=== PATIENT | male | born 1930 | race Caucasian/White ===

== ENCOUNTER 2018-01-26 11:07 | Inpatient (IN) ==
[2018-01-26 12:01] LABS: Basophils % 0.5 %; Eosinophils # 0.2 K/mcL (0.0-0.6); Eosinophils % 2.3 %; Hemoglobin 15.5 g/dL (12.9-16.9); Immature Granulocytes % 0.8 % (0-4); Immature Platelets 8.4 % (1.1-6.1); Lymphocytes # 1.7 K/mcL (0.6-4.6); Lymphocytes % 22.1 %; Mean Corpuscular Hemoglobin 33.2 pg (28.0-33.3); Mean Corpuscular Volume 92.1 fL (83.0-100.0); Mean Platelet Volume 11.9 fL (9.4-12.4); Monocytes # 0.6 K/mcL (0.0-1.3); Monocytes % 7.8 %; Neutrophils # 5.1 K/mcL (1.6-8.9); Red Blood Count 4.67 M/mcL (4.19-5.50); Red Cell Distribution Width 13.9 % (11.5-14.5); Segmented Neutrophils % 66.5 %
[2018-01-26 12:02] LABS: Platelet Count 45 K/mcL (140-400)
[2018-01-26 12:03] LABS: INR 1.3; Prothrombin Time 13.8 Seconds (9.4-12.1)
[2018-01-26 12:06] LABS: Activated Partial Thrombo Time 29.7 Seconds (26.0-36.0)
[2018-01-26 12:14] LABS: BUN/Creatinine Ratio 28 (6-26); Blood Urea Nitrogen 27 mg/dL (8-23); Calcium 9.4 mg/dL (8.6-10.3); Carbon Dioxide 22 mEq/L (23-29); Chloride 104 mEq/L (98-107); Glucose 235 mg/dL (70-105); Osmolality,Calculated 291 (280-300); Potassium 4.1 mEq/L (3.5-5.1); Sodium 134 mEq/L (136-145); eGFR For African Americans > 60 (> 60); eGFR For Non-African Americans > 60 (> 60)
[2018-01-26 12:19] LABS: Troponin I 0.82 ng/mL (< 0.04)
--- NOTE | 2018-01-26 12:25 | Emergency Department Note ---
Disposition Clinical Impression: NSTEMI (non-ST elevated myocardial infarction) Disposition: Admitted As Inpatient Condition: Good Time of Disposition: 12:54 Chest Pain HPI - General Chief Complaint: ED Chest Pain Stated Complaint: Chest Pressure Time Seen by Provider: 01/26/18 11:15 Source: EMS Limitations: no limitations Vital Signs Reviewed: Yes Nursing Notes Reviewed: Yes - History of Present Illness HPI Narrative: This is an 87 year-old male with history of HTN, IDDM, CAD/AK s/p CABG, and thrombocytopenia, who presents with substernal chest pressure, waxing and waning in intensity since yesterday evening. Associated with mild dyspnea. The pain is nonradiating, and is not clearly positional, pleuritic, or exertional. At the time of evaluation, pain is described as mild. Pt complaint: chest pain Onset (ago): day(s) (1) Duration: intermittent Onset: during rest Pain Location: substernal Severity: moderate Severity scale (1-10): 4 Quality: heaviness Pain Radiation: none Improves with: nothing Worsens with: nothing Associated symptoms: Reports: dyspnea (mild). Denies: nausea, vomiting, diaphoresis, syncope, palpitations, fever, cough, leg swelling Treatments prior to arrival chest pain: nitroglycerin (some relief) - Related Data Home Medications Medication Instructions Recorded Confirmed Cholecalciferol (Vitamin D3) 1,000 unit PO HS 12/05/15 01/26/18 [Vitamin D] Cyanocobalamin (Vitamin B-12) 1,000 mcg PO HS 12/05/15 01/26/18 [Vitamin B12] Levothyroxine [Synthroid] 112 mcg PO HS 12/05/15 01/26/18 Multivitamin [Multivitamins] 1 tab PO HS 12/05/15 01/26/18 Dapagliflozin Propanediol [Farxiga] 5 mg PO HS 01/11/17 01/26/18 GlipiZIDE [Glipizide ER] 10 mg PO BID 05/11/17 01/26/18 Oxybutynin Chloride [Ditropan Xl] 10 mg PO HS 05/11/17 01/26/18 Atorvastatin [Lipitor] 40 mg PO HS 10/31/17 01/26/18 Insulin DETEMIR [Levemir] 40 unit SQ HS 01/26/18 01/26/18 metFORMIN [Glucophage] 500 mg PO BIDWM 01/26/18 01/26/18 Previous Rx's Medication Instructions Recorded Polyethylene Glycol 3350 [MiraLAX] 17 gm PO QAM PRN #1 bottle 10/31/17 Allergies Allergy/AdvReac Type Severity Reaction Status Date / Time acetaminophen Allergy Difficulty Verified 01/26/18 14:11 [From Darvocet-N] Breathing propoxyphene Allergy Difficulty Verified 01/26/18 14:11 [From Darvocet-N] Breathing All systems ED: reviewed and negative except as stated. Constitutional: Denies: fever Respiratory: Reports: dyspnea. Denies: hemoptysis Gastrointestinal: Denies: abdominal pain, nausea, vomiting Chest Pain PMH - Past Medical History Medical history: Reports: aortic aneurysm, arthritis, cancer, coronary artery disease, diabetes, hyperlipidemia, myocardial infarction, thyroid disease, other Surgical history: Reports: cancer surgery, cholecystectomy, heart valve replacement, orthopedic, other, other Psychiatric history: Reports: no psych history - Social History Smoking Status: Former smoker Alcohol use: Reports: none Drug use: Reports: none Physical Exam - General Limitations: no limitations General appearance: alert, in no apparent distress - Head Head exam: atraumatic, normocephalic - Eye Eye exam: Present: normal appearance - ENT ENT exam: normal exam - Neck Neck exam: Present: normal inspection - Respiratory Respiratory exam: Present: normal lung sounds bilaterally. Absent: wheezes - Cardiovascular Cardiovascular exam: Present: regular rate, normal rhythm, normal heart sounds - Abdominal Exam Abdominal exam: Present: soft, Non-Tender. Absent: distention - Extremities Exam Extremities exam: Present: normal inspection. Absent: calf tenderness - Neurological Exam Neurological exam: Present: alert, oriented X3. Absent: motor sensory deficit - Psychiatric Psychiatric exam: Present: normal affect, normal mood - Skin Skin exam: Present: warm, dry, intact Course - Consultations Consultation #1: Discussed case with Dr. Hartmann. He says no ASA or heparin. Admit to hospitalist with hematology consult. Time: 12:29 Consultation #2: Patient has been accepted for admission by Dr. Dowd. Time: 13:13 Vital Signs Temperature 97.8 F 01/26/18 11:08 Pulse Rate 70 01/26/18 11:08 Respiratory Rate 18 01/26/18 11:08 Blood Pressure 137/93 01/26/18 11:08 O2 Sat by Pulse Oximetry 96 01/26/18 11:08 Temperature 97.5 F L 01/26/18 21:44 Pulse Rate 64 01/26/18 21:44 Respiratory Rate 14 01/26/18 21:44 Blood Pressure 134/73 01/26/18 21:44 O2 Sat by Pulse Oximetry 93 01/26/18 21:44 Oxygen Delivery Oxygen Delivery Room Air Chest Pain - Lab Data Result diagrams: 01/26/18 11:39 01/26/18 11:39 Lab Results 01/26/18 01/26/18 01/26/18 Range/Units 11:39 11:39 11:39 WBC 7.7 (4.3-11.1) K/mcL RBC 4.67 (4.19-5.50) M/mcL Hgb 15.5 (12.9-16.9) g/dL Hct 43.0 (37.5-50.1) % MCV 92.1 (83.0-100.0) fL MCH 33.2 (28.0-33.3) pg MCHC 36.0 H (31.6-35.5) g/dL RDW 13.9 (11.5-14.5) % Plt Count 45 L (140-400) K/mcL MPV 11.9 (9.4-12.4) fL Immature Gran % 0.8 (0-4) % Seg Neutrophils % 66.5 % Lymphocytes % 22.1 % Monocytes % 7.8 % Eosinophils % 2.3 % Basophils % 0.5 % Neutrophils # 5.1 (1.6-8.9) K/mcL Lymphocytes # 1.7 (0.6-4.6) K/mcL Monocytes # 0.6 (0.0-1.3) K/mcL Eosinophils # 0.2 (0.0-0.6) K/mcL Basophils # 0.0 (0.0-0.2) K/mcL Immature Plt Fraction 8.4 H (1.1-6.1) % PT 13.8 H (9.4-12.1) Seconds INR 1.3 APTT 29.7 (26.0-36.0) Seconds Sodium 134 L (136-145) mEq/L Potassium 4.1 (3.5-5.1) mEq/L Chloride 104 (98-107) mEq/L Carbon Dioxide 22 L (23-29) mEq/L BUN 27 H (8-23) mg/dL Creatinine 0.98 (0.70-1.30) mg/dL Est GFR ( Amer) > 60 (> 60) Est GFR (Non-Af Amer) > 60 (> 60) BUN/Creatinine Ratio 28 H (6-26) Glucose 235 H (70-105) mg/dL Calculated Osmolality 291 (280-300) Calcium 9.4 (8.6-10.3) mg/dL Troponin I 0.82 H* (< 0.04) ng/mL - EKG Data EKG attestation: Yes I reviewed and interpreted this EKG. EKG shows normal: sinus rhythm Rate: normal Rhythm: NSR [place]/QRS: left axis deviation Ectopy: PVC (occasional) When compared to previous EKG there are: no significant changes Interpretation: no acute changes, nonspecific ST-T wave changes
--- NOTE | 2018-01-26 13:39 | Electrocardiograph Report ---
[facility] [employer] Test Date: 2018-01-26 Pat Name: Anup Thomson Department: 103 Room: Gender: M Environmental Aide: CORTES : 1930 Requested By: Jorje Ortega Order Number: [id number] Reading MD: Deon Alicia MD Measurements Intervals [place] Rate: 77 P: 21 [place]: 188 QRS: -53 QRSD: 110 T: 90 QT: 394 QTc: 426 Interpretive Statements SINUS RHYTHM WITH OCCASIONAL VENTRICULAR PREMATURE COMPLEXES PATTERN CONSISTENT WITH PULMONARY DISEASE LEFT ANTERIOR FASCICULAR BLOCK [QRS AXIS <= -45, QR IN I, RS IN II] NONSPECIFIC ST & T-WAVE ABNORMALITY Electronically Signed On 01-26-2018 13:37:39 EDT by Deon Alicia MD
[2018-01-26] MEDS ORDERED: Naloxone 0.4 MG/ML INJ IVP PRN (14:06)
[2018-01-26] MEDS ORDERED: Aspirin 325 MG TABLET PO ONE (14:21)
[2018-01-26] MEDS ORDERED: *HR* Dextrose 50 % in Water (Syg) 50 ML SYRINGE IVP PRN (14:27)
[2018-01-26] MEDS ORDERED: Dextrose Gel 15 GM/37.5 ML TUBE PO PRN ×2 (14:27)
[2018-01-26] MEDS ORDERED: D5% in Water 1,000 ML IVC PRN (14:27)
[2018-01-26] MEDS ORDERED: Nitroglycerin 25 MG/250 ML INFUS..BTL IVC SCH (14:30)
--- NOTE | 2018-01-26 15:28 | Internal Med History&Physical ---
<Jimenez Victor - Last Filed: 01/27/18 00:20> Date of Encounter: 01/26/18 Time of Encounter: 13:30 Internal Medicine - H&P: HPI Chief complaint: CP Admitted From: Emergency Dept Plans for Post Hospital Care: Home History of present illness: Mr. Thomson is a 87 year old male w/PMH of aortic aneurysm, arthritis, basal cell skin carcinoma, CAD, diabetes controlled with oral and insulin, HLD, previous myocardial infarction in 2004 without stent placement, and thyroid disease presents from the ED with chief complaint of chest pain that began last night, then resolved, and returned this morning. Patient states he was working on his tractor when symptoms began. Denies previous occurrence. Describes pain as pressure in the center of his chest with radiation to his back one time. Status post CABG in 2004 with double bypass including maker. Reports nitroglycerin provided some relief in ED. Currently being followed by Dr. Hough for thrombocytopenia. Pt. states his spleen is destroying his platelets. Pt. reports weakness, urinary incontinence, and hx of falls but denies recent illness, fever, chills, nausea, vomiting, changes in vision, unusual bleeding, palpitations, shortness of breath, cough, chest congestion, abdominal pain, dizziness, lightheadedness, numbness, tingling, pre-syncope, or syncope. Past Med Surg Social Fam HX - Past Medical History Source: patient, old records reviewed, obtained from family Medical history: aortic aneurysm, arthritis, cancer (Skin), coronary artery disease, diabetes, hyperlipidemia, hypertension, myocardial infarction (2004 w/ o stent), thyroid disease, other Psychiatric history: no psych history - Past Surgical History Surgical History: cancer surgery (Skin), cholecystectomy, coronary bypass (CABG ) (Double (widowmaker)), heart valve replacement, orthopedic, other, other - Social History Smoking Status: Former smoker Packs per day: 1 PPD - Reports quitting 51 years ago Smokeless Tobacco Status: No Alcohol use: none Drug use: none Occupational status: retired Current living situation: Home, With Family Activity Level: Uses cane/walker Recent Out of Country Travel Within the Last 8 Weeks: No Exposure or Possible Exposure to Illness During Travel: No - Family History Father Race: Family Member Ethnicity: Non- Living Status: Age at : 61 Cause of : RI Hx Family Cardiac Disorders: Yes (RI, CAD) Hx Family Endocrine Disorder: Yes (DM) Mother Race: Family Member Ethnicity: Non- Living Status: Age at : 27 Cause of : TB Hx Family Respiratory Disorders: Yes (TB) Brother Race: Family Member Ethnicity: Non- Living Status: Age at : 64 Cause of : RI Hx Family Cardiac Disorders: Yes (RI) Sister History Unknown: Yes Race: Family Member Ethnicity: Non- Living Status: Age at : 67 Internal Medicine - H&P: Meds Cholecalciferol (Vitamin D3) [Vitamin D] 1,000 unit PO HS 12/05/15 [History] Cyanocobalamin (Vitamin B-12) [Vitamin B12] 1,000 mcg PO HS 12/05/15 [History] Levothyroxine [Synthroid] 112 mcg PO HS 12/05/15 [History] Multivitamin [Multivitamins] 1 tab PO HS 12/05/15 [History] Dapagliflozin Propanediol [Farxiga] 5 mg PO HS 01/11/17 [History] GlipiZIDE [Glipizide ER] 10 mg PO BID 05/11/17 [History] Oxybutynin Chloride [Ditropan Xl] 10 mg PO HS 05/11/17 [History] Atorvastatin [Lipitor] 40 mg PO HS 10/31/17 [History] Polyethylene Glycol 3350 [MiraLAX] 17 gm PO QAM PRN #1 bottle 10/31/17 [Rx] Insulin DETEMIR [Levemir] 40 unit SQ HS 01/26/18 [History] metFORMIN [Glucophage] 500 mg PO BIDWM 01/26/18 [History] 3 Allergy/AdvReac Type Severity Reaction Status Date / Time acetaminophen Allergy Difficulty Verified 01/26/18 14:11 [From Darvocet-N] Breathing propoxyphene Allergy Difficulty Verified 01/26/18 14:11 [From Darvocet-N] Breathing All Systems PM: A 10-system review of systems was performed and is negative for pertinent findings except as documented above in the HPI. - Constitutional Constitutional: as per HPI, falls, weakness, no chills, no fever(s), no night sweats - EENT Eyes: no change in vision, no discharge, no pain, no photophobia Ears: no ear discharge, no ear pain, no tinnitus Nose, mouth and throat: no dysphagia, no nasal discharge, no neck pain, no sore throat - Breasts Breasts: as per HPI - Cardiovascular Cardiovascular ROS IM: as per HPI, chest pain, no diaphoresis, no dyspnea, no lightheadedness, no palpitations, no syncope - Respiratory Respiratory: no cough, no dyspnea, no wheezing, no excessive phlegm production - Gastrointestinal Gastrointestinal: no abdominal pain, no diarrhea, no hematemesis, no hematochezia, no melena, no nausea, no vomiting - Genitourinary Genitourinary ROS male: as per HPI, urinary incontinence - Musculoskeletal Musculoskeletal ROS IM: no numbness, no tingling - Integumentary Integumentary IM: as per HPI, other (Skin cancer on arms and left ear) - Neurological Neurological ROS: as per HPI, weakness, no confusion, no convulsions, no focal weakness, no numbness, no tingling, no tremor(s) - Psychiatric Psychiatric: as per HPI - Endocrine Endocrine IM: as per HPI - Hematologic/Lymphatic Hematologic/Lymphatic: no easy bruising - Allergic/Immunologic Allergic/Immunologic: as per HPI - Constitutional Vitals: Temp Pulse Resp BP Pulse Ox 97.6 F 71 16 131/83 93 01/26/18 14:28 01/26/18 14:28 01/26/18 14:28 01/26/18 14:28 01/26/18 14:28 General appearance: Present: cooperative, A&O X 3, pleasant, no acute distress, answers questions appropriately - Head Head exam: Present: atraumatic, normocephalic - Eye Eye exam: Present: PERRL, conjuntiva pink, sclera anicteric Pupils: Present: PERRL - ENT ENT exam: Present: normal exam - Neck Neck exam general surgery: Present: normal inspection, supple, trachea midline. Absent: lymphadenopathy - Respiratory Respiratory exam: Present: CTAB. Absent: accessory muscle use, rales, rhonchi, wheezes - Cardiovascular Cardiovascular exam: Present: RRR, +S1, +S2. Absent: diastolic murmur, gallop, rubs, systolic murmur - GI/Abdominal GI/Abdominal exam: Present: normal bowel sounds, soft, no peritoneal signs. Absent: distended, tenderness - Rectal Rectal exam: Present: deferred - Additional comments: exam deferred. - Extremities Exam Extremities exam: Present: warm, radial pulses palpable and symmetrical. Absent : calf tenderness, cyanotic, pedal edema - Back Exam Back exam: Present: normal inspection - Neurological Exam Neurological exam: Present: CN II-XII intact, oriented X3, no focal deficits. Absent: pronater drift, facial droop, speech deficit - Psychiatric Psychiatric exam: Present: normal affect, normal mood - Skin Skin exam: Present: dry, erythema Internal Med - H&P Results - Labs CBC & Chem 7: 01/26/18 11:39 01/26/18 11:39 - EKG Data EKG shows normal: sinus rhythm - EKG Data Prior EKG available for review: yes EKG comments: 01/26/18 15:39 EKG dated 05/11/17 shows sinus rhythm with marked left axis deviation. EKG dated 01/26/18 shows sinus rhythm with occasional ventricular premature complexes, pattern consistent with pulmonary disease. Left anterior fascicular block and nonspecific ST and T-wave abnormality. - Diagnostic Studies Chest x-ray Additional comments: Impressions Chest X-Ray 01/26/18 11:17 IMPRESSION: Minimal left basilar atelectasis. Otherwise no acute cardiopulmonary findings. D/ / 01/26/2018 12:31:04 Shayla Avina MD / [facility] Interpreting Provider: Shayla Avina MD - Assessment and plan (1) NSTEMI (non-ST elevated myocardial infarction) Current Visit: Yes Status: Acute Assessment and plan: Acute CP that began last night and returned this morning. Centralized pressure with radiation to back one time. Patient states he was working on his tractor at the time. Denies SOB, N, V. On exam, pt. states CP has resolved for now. Initial troponin 0.82. Will trend x2. Pt. currently has thrombocytopenia w/ platelets of 45, so no heparin. Aspirin per Cardiology. Continuous cardiac telemetry. Echocardiogram. Nitro drip per Cardiology. Platelet transfusion per Dr. Hough to increase platelets >50 for LHC and heparin use. Cardiology consult ordered and discussed w/Dr. Hartmann in ED and I appreciate the consult. Supplemental O2 w/titration and SpO2 monitoring PRN. Pt. discussed w/Dr. Pierce who agrees w/plan of care. Pt. is high risk for current cardiac event and further morbidity d/t current CP and sx, hx of previous RI/CABG, current thrombocytopenia, hx, and risk factors. Observation. (2) Thrombocytopenia Current Visit: Yes Status: Acute Assessment and plan: Acute on chronic thrombocytopenia w/platelets of 45. Pt. reports he is followed by Dr. Hough who is aware of current thrombocytopenia and watching patient's numbers. Hematology oncology consult ordered and discussed with Jie Muñoz regarding current thrombocytopenia and I appreciate the consult. Current recommendation is to transfuse platelets in order to bring platelet level greater than 50 for LHC/heparin use. (3) Skin cancer Current Visit: Yes Status: Chronic Assessment and plan: Hx of chronic basal cell skin carcinoma. Pt. reports still receiving treatments and sees Dr. oHugh. Reports next appt. is in February. Dr. Hough consulted d/ t current thrombocytopenia and I appreciate the consult. (4) Type 2 diabetes mellitus Current Visit: Yes Status: Chronic Assessment and plan: Hx of DM controlled with insulin and oral anti-hyperglycemics. Continue patient 's insulin, hold oral medications, and administer low-dose correction insulin sliding scale with hypoglycemic protocol. A1c in a.m. labs. BG checks before meals at bedtime. Qualifiers: Diabetes mellitus group home insulin use: with group home use Diabetes mellitus complication status: with hyperglycemia Qualified Code(s): E11.65 - Type 2 diabetes mellitus with hyperglycemia; Z79.4 - network systems consultant (current) use of insulin; Z79.4 - network systems consultant (current) use of insulin; Z79.4 - network systems consultant (current ) use of insulin; Z79.4 - longterm (current) use of insulin (5) HLD (hyperlipidemia) Current Visit: Yes Status: Chronic Assessment and plan: Hx of chronic HLD. Lipid panel in a.m. labs. Continue pts. Lipitor. Qualifiers: Hyperlipidemia type: pure hypercholesterolemia Qualified Code(s): E78.00 - Pure hypercholesterolemia, unspecified; E78.0 - Pure hypercholesterolemia (6) Thyroid disease Current Visit: Yes Status: Chronic Assessment and plan: Hx of chronic thyroid disease. TSH and Free T4 in a.m. labs. Continue pts. Synthroid. (7) Hx of fall Current Visit: Yes Status: Chronic Assessment and plan: Hx of chronic falls d/t weakness. Falls/safety precautions, up with assist, and bed rest w/bedside commode w/assist only. PT/OT consults ordered to assess for rehabilitation needs for post-discharge planning. (8) Previous inferior myocardial infarction older than 8 weeks Current Visit: Yes Status: Resolved Assessment and plan: Hx of previous RI in 2004 with no stents but CABG with double bypass in maker. Cardiology consulted for current CP. (9) DVT prophylaxis Current Visit: Yes Status: Acute Assessment and plan: Bilateral SCDs on LEs for DVT prophylaxis d/t current platelets of 45. (10) Aortic aneurysm, abdominal Current Visit: Yes Status: Chronic Assessment and plan: Hx of AAA. Stable currently. Qualifiers: Presence of rupture: without rupture Qualified Code(s): I71.4 - Abdominal aortic aneurysm, without rupture - Time Spent With Patient Total time spent is greater than 50% in coordination of care (as documented) at patient's floor/unit and/or counseling patient: Greater than 35 minutes <Lee Pierce - Last Filed: 01/27/18 00:26> Date of Encounter: 01/27/18 Internal Medicine - H&P: HPI History of present illness: Mr. Thomson is a 87 year old male All Systems PM: A 10-system review of systems was performed and is negative for pertinent findings except as documented above in the HPI. - Constitutional Vitals: Temp Pulse Resp BP Pulse Ox 97.5 F L 64 14 134/73 93 01/26/18 21:44 01/26/18 21:44 01/26/18 21:44 01/26/18 21:44 01/26/18 21:44 Internal Med - H&P Results - Labs CBC & Chem 7: 01/26/18 11:39 01/26/18 11:39 Labs: Cardiac Enzymes 01/26/18 01/26/18 Range/Units 17:35 22:57 Troponin I 0.72 H* 1.14 H* (< 0.04) ng/mL - Attending Attestation I have seen and examined this patient independently. I have discussed with RESPIRATORY MEDICINE PHYSICIAN Mr Victor regarding the management plan. Agree with the documentation. - Assessment and plan (1) Thrombocytopenia Current Visit: Yes Status: Acute (2) Type 2 diabetes mellitus Current Visit: Yes Status: Chronic Qualifiers: Diabetes mellitus adjuster leader insulin use: with group home use Diabetes mellitus complication status: with hyperglycemia Qualified Code(s): E11.65 - Type 2 diabetes mellitus with hyperglycemia; Z79.4 - longterm (current) use of insulin; Z79.4 - network systems consultant (current) use of insulin; Z79.4 - longterm (current ) use of insulin; Z79.4 - network systems consultant (current) use of insulin (3) Skin cancer Current Visit: Yes Status: Chronic (4) NSTEMI (non-ST elevated myocardial infarction) Current Visit: Yes Status: Acute (5) HLD (hyperlipidemia) Current Visit: Yes Status: Chronic Qualifiers: Hyperlipidemia type: pure hypercholesterolemia Qualified Code(s): E78.00 - Pure hypercholesterolemia, unspecified; E78.0 - Pure hypercholesterolemia (6) Thyroid disease Current Visit: Yes Status: Chronic (7) Previous inferior myocardial infarction older than 8 weeks Current Visit: Yes Status: Resolved (8) DVT prophylaxis Current Visit: Yes Status: Acute (9) Hx of fall Current Visit: Yes Status: Chronic (10) Aortic aneurysm, abdominal Current Visit: Yes Status: Chronic Qualifiers: Presence of rupture: without rupture Qualified Code(s): I71.4 - Abdominal aortic aneurysm, without rupture - Time Spent With Patient Total time spent is greater than 50% in coordination of care (as documented) at patient's floor/unit and/or counseling patient:
--- NOTE | 2018-01-26 15:54 | Cardiology Consult Note ---
Date of Encounter: 01/26/18 Time of Encounter: 15:45 Assessment and Plan (1) NSTEMI (non-ST elevated myocardial infarction) Current Visit: Yes Status: Acute A/R/B of C discussed with him. Cw his history of thrombocytopenia and aneurysm. He is agreeable with proceeding but recommended that plt count >50 per hematology for DAPT/heparin. (2) Thrombocytopenia Current Visit: No Status: Acute Platelet transfusion, dw and consult hematology. Discussion w patient/family: The assessment and plan as outlined above was discussed with the patient and/or family members who expressed understanding and agreement. All questions were answered. Thank you for involving us in the care of your patient. Please call with any questions. History of Present Illness Consult date: 01/26/18 Consult reason: NSTEMI Chief complaint: chest pain History of present illness: Mr. Thomson is a 87 year old male with 2 vsl CABG 2004, chronic thrombocytopenia plt 40s, BL LE aneurysms presents with waxing and waning chest discomfort starting yesterday afternoon at worst 8/10 now 2/10 described as pressure. It is not associated with dyspnea, nausea or diaphoresis. History of chronic thrombocytopenia followed by hematology with plt counts in the 40s and instructed not to be on aspirin previously. Discussed with Hematology (Toni Hough), that was acceptable for aspirin but also needs platelet transfused to get plt count above 50 before invasive procedure. Heparin also acceptable if necessary. Past Med Surg Social Fam HX - Past Medical History Medical history: aortic aneurysm, arthritis, cancer (Skin), coronary artery disease, diabetes, hyperlipidemia, hypertension, myocardial infarction (2004 w/ o stent), thyroid disease, other Psychiatric history: no psych history - Past Surgical History Surgical History: cancer surgery (Skin), cholecystectomy, coronary bypass (CABG ) (Double (widowmaker)), heart valve replacement, orthopedic, other, other - Social History Smoking Status: Former smoker Packs per day: 1 PPD - Reports quitting 51 years ago Smokeless Tobacco Status: No Alcohol use: none Drug use: none - Family History Father Race: Family Member Ethnicity: Non- Living Status: Age at : 61 Cause of : [place] Hx Family Cardiac Disorders: Yes ([place], CAD) Hx Family Endocrine Disorder: Yes (DM) Mother Race: Family Member Ethnicity: Non- Living Status: Age at : 27 Cause of : [place] Hx Family Respiratory Disorders: Yes (TB) Brother Race: Family Member Ethnicity: Non- Living Status: Age at : 64 Cause of : [place] Hx Family Cardiac Disorders: Yes ([place]) Sister History Unknown: Yes Race: Family Member Ethnicity: Non- Living Status: Age at : 67 Medications and Allergies Cholecalciferol (Vitamin D3) [Vitamin D] 1,000 unit PO HS 12/05/15 [History] Cyanocobalamin (Vitamin B-12) [Vitamin B12] 1,000 mcg PO HS 12/05/15 [History] Levothyroxine [Synthroid] 112 mcg PO HS 12/05/15 [History] Multivitamin [Multivitamins] 1 tab PO HS 12/05/15 [History] Dapagliflozin Propanediol [Farxiga] 5 mg PO HS 01/11/17 [History] GlipiZIDE [Glipizide ER] 10 mg PO BID 05/11/17 [History] Oxybutynin Chloride [Ditropan Xl] 10 mg PO HS 05/11/17 [History] Atorvastatin [Lipitor] 40 mg PO HS 10/31/17 [History] Polyethylene Glycol 3350 [MiraLAX] 17 gm PO QAM PRN #1 bottle 10/31/17 [Rx] Insulin DETEMIR [Levemir] 40 unit SQ HS 01/26/18 [History] metFORMIN [Glucophage] 500 mg PO BIDWM 01/26/18 [History] 3 Allergy/AdvReac Type Severity Reaction Status Date / Time acetaminophen Allergy Difficulty Verified 01/26/18 14:11 [From Darvocet-N] Breathing propoxyphene Allergy Difficulty Verified 01/26/18 14:11 [From Darvocet-N] Breathing All Systems Review: The remainder of the systems were reviewed and are negative - Constitutional Constitutional: no chills, no fever(s) - EENT Eyes: no blurred vision, no loss of vision Nose, mouth and throat: no dysphagia, no epistaxis - Cardiovascular Cardiovascular: chest pain at rest, chest pain with exertion - Respiratory Respiratory: no hemoptysis, no wheezing - Gastrointestinal Gastrointestinal: no hematemesis, no hematochezia - Genitourinary Genitourinary: no hematuria, no nocturia - Musculoskeletal Musculoskeletal: no arthralgias, no myalgias - Integumentary Integumentary: no rash, no unusual bruising - Neurological Neurological: no syncope, no tingling - Psychiatric Psychiatric: no hallucinations, no panic attacks - Hematological/Lymphatic Hematologic/Lymphatic: no easy bleeding, no easy bruising Physical Examination Vital Signs, Last 4 Hours Temp Pulse Resp BP Pulse Ox 01/26/18 14:28 97.6 F 71 16 131/83 93 General: Conversant HEENT: Atraumatic Neck: No JVD Cardiac: Reg Rate and Rhythm Lungs: Other (basilar crackles) Neuro: Alert and responsive Abdomen: Soft Skin: No rashes noted on visualized skin Musculoskeletal: No Chest Wall Tenderness Extremities: No Edema Results 01/26/18 11:39 01/26/18 11:39 - EKG Interpretation EKG results cardiology: personally reviewed, sinus rhythm, no diagnostic ischemia Consult Discharge Plan - Plan Referrals: Bruce Shannon MD [Primary Care Provider] -
--- NOTE | 2018-01-26 17:06 | Oncology Inp Consult Note ---
<Jie Muñoz - Last Filed: 01/26/18 17:01> Date of Encounter: 01/26/18 Time of Encounter: 16:00 Assessment and Plan (1) Thrombocytopenia Status: Acute Assessment and plan: Chronic and stable, secondary to underlying cirrhosis with splenomegaly. Platelets count 45 on admission. Patient admitted with NSTEMI, cardiology consult reviewed, he is planned for [facility]. Hematology consulted for further recommendations in light of his thrombocytopenia. 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 Dr. Hough recommended platelet transfusion prior to elective surgical procedures to maintain PLT count > 50,000. Ideally, would recommend his platelet count chronically stay >50,000 with any DAP therapy, ASA or Heparin. Discussed recommendations with Dr. Hartmann with Cardiology. Dr. Hartmann has already arranged for platelet transfusion. Patient updated on recommendations at bedside today. Currently experiencing chest pain, primary team aware and working with patient, preparing for EKG at this time of assessment. Please refer to Dr. Hough's attestation for additional details. - Data of Consult Patient: known to practice within the last 3 years Consult date: 01/26/18 Requesting Physician: Jeramie Dowd Primary Care Provider: Bruce Shannon MD - Consult Narrative Reason for consult: Chronic thrombocytopenia, splenomegaly, cirrhosis History of present illness: Mr. 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 Rodriguez, BPH, constipation and hypothyroidism. Patient of Dr. Hough who monitors patients thrombocytopenia. Dr. Hough does note he may consider thrombopoietin analogs like Nplate or promacta if platelets fall below 40, or he develops signs or symptoms of bleeding, however, he has been stable and had no indication for further treatment. 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 CT abd/pel without contrast on 12/19/15 shows mild splenomegaly appears stable. Also evidence of cirrhosis Past Med Surg Social Fam HX - Past Medical History Medical history: aortic aneurysm, arthritis, cancer (Skin), coronary artery disease, diabetes, hyperlipidemia, hypertension, myocardial infarction (2004 w/ o stent), thyroid disease, other Psychiatric history: no psych history - Past Surgical History Surgical History: cancer surgery (Skin), cholecystectomy, coronary bypass (CABG ) (Double (widowmaker)), heart valve replacement, orthopedic, other, other - Social History Smoking Status: Former smoker Packs per day: 1 PPD - Reports quitting 51 years ago Smokeless Tobacco Status: No Alcohol use: none Drug use: none - Family History Father Race: Family Member Ethnicity: Non- Living Status: Age at : 61 Cause of : [place] Hx Family Cardiac Disorders: Yes ([place], CAD) Hx Family Endocrine Disorder: Yes (DM) Mother Race: Family Member Ethnicity: Non- Living Status: Age at : 27 Cause of : TB Hx Family Respiratory Disorders: Yes (TB) Brother Race: Family Member Ethnicity: Non- Living Status: Age at : 64 Cause of : [place] Hx Family Cardiac Disorders: Yes ([place]) Sister History Unknown: Yes Race: Family Member Ethnicity: Non- Living Status: Age at : 67 Medications and Allergies Cholecalciferol (Vitamin D3) [Vitamin D] 1,000 unit PO HS 12/05/15 [History] Cyanocobalamin (Vitamin B-12) [Vitamin B12] 1,000 mcg PO HS 12/05/15 [History] Levothyroxine [Synthroid] 112 mcg PO HS 12/05/15 [History] Multivitamin [Multivitamins] 1 tab PO HS 12/05/15 [History] Dapagliflozin Propanediol [Farxiga] 5 mg PO HS 01/11/17 [History] GlipiZIDE [Glipizide ER] 10 mg PO BID 05/11/17 [History] Oxybutynin Chloride [Ditropan Xl] 10 mg PO HS 05/11/17 [History] Atorvastatin [Lipitor] 40 mg PO HS 10/31/17 [History] Polyethylene Glycol 3350 [MiraLAX] 17 gm PO QAM PRN #1 bottle 10/31/17 [Rx] Insulin DETEMIR [Levemir] 40 unit SQ HS 01/26/18 [History] metFORMIN [Glucophage] 500 mg PO BIDWM 01/26/18 [History] 3 Allergy/AdvReac Type Severity Reaction Status Date / Time acetaminophen Allergy Difficulty Verified 01/26/18 14:11 [From Darvocet-N] Breathing propoxyphene Allergy Difficulty Verified 01/26/18 14:11 [From Darvocet-N] Breathing Constitutional: Present: fatigue. Absent: anorexia, chills, fever(s), weakness , weight loss Eyes: Absent: change in vision Nose, mouth and throat: Absent: dysphagia Cardiovascular: Present: as per HPI, chest pain Respiratory: Present: dyspnea. Absent: cough, hemoptysis Gastrointestinal: Absent: abdominal pain, heartburn, hematemesis, hematochezia, melena, nausea, vomiting Additional comments: denies dysuria or hematuria Musculoskeletal: Absent: numbness, tingling Integumentary: Absent: wounds Neurological: Absent: focal weakness, frequent falls Hematologic/Lymphatic: Present: as per HPI Oncology - Exam - Constitutional Vitals: Temp Pulse Resp BP Pulse Ox 97.6 F 84 15 156/84 84 01/26/18 14:28 01/26/18 16:47 01/26/18 16:47 01/26/18 16:47 01/26/18 16:47 General appearance: cooperative, no acute distress, no febrile Exam: appears uncomfortable, reports chest pain, primary team aware and notifying hospitalist and preparing for EKG at moment - Head Head exam: Present: atraumatic - ENT ENT exam: Present: mucous membranes moist - Respiratory Respiratory exam: Present: CTAB. Absent: respiratory distress - Cardiovascular Cardiovascular exam: Present: RRR, +S1, +S2 - GI/Abdominal GI/Abdominal exam: Present: normal bowel sounds, soft. Absent: tenderness - Extremities Exam Extremities exam: Present: normal inspection. Absent: calf tenderness - Neurological Exam Neurological exam: Present: alert, oriented X3, no focal deficits, strengths equal and symetr throughout - Psychiatric Psychiatric exam: Present: normal affect, normal mood - Skin Skin exam: Present: dry, intact, normal color, warm Consult Discharge Plan - Plan Referrals: Bruce Shannon MD [Primary Care Provider] - <Kory Hough - Last Filed: 01/26/18 19:19> Date of Encounter: 01/26/18 - Data of Consult Requesting Physician: Jeramie Dowd Primary Care Provider: Bruce Shannon MD - Consult Narrative History of present illness: Mr. Thomson is a 87 year old male Oncology - Exam - Constitutional Vitals: Temp Pulse Resp BP Pulse Ox 97.9 F 70 15 132/65 95 01/26/18 18:57 01/26/18 18:57 01/26/18 18:57 01/26/18 18:57 01/26/18 18:57 Oncology - Results Labs: Cardiac Enzymes 01/26/18 Range/Units 17:35 Troponin I 0.72 H* (< 0.04) ng/mL - Attending Attestation 1. Acute non-STMI. Troponin peak 0.8 and is coming down most recent value 0.72. He is chest pain-free at the moment on nitroglycerin drip Agree with left heart catheterization. He is at high risk for coronary artery disease given his diabetes which is not well-controlled 2. Chronic thrombocytopenia from cirrhosis. Cirrhosis in turn is secondary to Rose from long-standing diabetes Current platelet count 45,000. We will transfuse 1 unit single donor apheresis platelets prior to left heart catheterization. This should improve the platelet count about 80,000 or above If he is a candidate for dual antiplatelet agents , then keep his platelets above 50,000. We will watch him closely as an outpatient and may consider thrombopoietin analogs to improve platelet count
[2018-01-26] MEDS: Insulin LISPRO 300 UNITS/3 ML VIAL SQ SCH ×2 (18:00→20:41)
[2018-01-26] MEDS ORDERED: 0.9 % Sodium Chloride 250 ML ONE (18:46)
[2018-01-26] MEDS: Cyanocobalamin (B-12) 1,000 MCG TABLET PO SCH (20:41)
[2018-01-26] MEDS: Cholecalciferol (D-3) 1,000 UNIT TABLET PO SCH (20:41)
[2018-01-26] MEDS: Insulin DETEMIR 100 UNIT/ML X5UNITS SQ SCH (20:41)
[2018-01-26] MEDS: Multivit/Ca/Min/Fe/FA 1 TAB TABLET PO SCH (20:41)
[2018-01-26] MEDS ORDERED: (Dapagliflozin Propanediol [Farxiga] 5 MG) PO SCH (21:00)
--- NOTE | 2018-01-26 23:05 | Event Note ---
Date of Encounter: 01/26/18 Time of Encounter: 18:40 Alerted by pts. nurse that patient's troponin was trending down from 0.82 to 0.72 and that pt. was reporting a CP level of 1/10. Pt. admitted for CP r/o which is complicated by current thrombocytopenia and platelet level of 45 on admission. Pt. followed by Dr. Hough who is monitoring pts. thrombocytopenia w/recommendation to increase platelet level >50 before considering heparin use or LHC. Dr. Hartmann consulted from Cardiology regarding case who ordered one unit of platelets to be transfused. Order for CBC placed for 00:00 to assess platelet status. 2nd unit of platelets ordered for transfusion based on CBC results w/stipulation that unit is to be held if platelet re-check is >[address]. [address] Hartmann regarding use of heparin for this pt. D/t troponin trending down and CP of 1-2/10, recommendation from Dr. Hartmann is no heparin and I appreciate the recommendations. Will continue to monitor pt. for CP, troponin, and f/u labs to assess for platelet level in preparation for planned LHC.
[2018-01-27 01:09] LABS: Basophils % 0.3 %; Lymphocytes % 23.6 %; Mean Corpuscular HGB Conc 36.1 g/dL (31.6-35.5)
[2018-01-27 01:11] LABS: Eosinophils # 0.2 K/mcL (0.0-0.6); Eosinophils % 3.1 %; Hematocrit 41.8 % (37.5-50.1); Hemoglobin 15.1 g/dL (12.9-16.9); Immature Granulocytes % 0.7 % (0-4); Immature Platelets 7.7 % (1.1-6.1); Lymphocytes # 1.7 K/mcL (0.6-4.6); Mean Corpuscular Hemoglobin 33.2 pg (28.0-33.3); Mean Corpuscular Volume 91.9 fL (83.0-100.0); Mean Platelet Volume 11.7 fL (9.4-12.4); Monocytes # 0.6 K/mcL (0.0-1.3); Monocytes % 8.4 %; Neutrophils # 4.5 K/mcL (1.6-8.9); Red Blood Count 4.55 M/mcL (4.19-5.50); Red Cell Distribution Width 13.9 % (11.5-14.5); Segmented Neutrophils % 63.9 %
[2018-01-27 01:13] LABS: Platelet Count 50 K/mcL (140-400)
[2018-01-27] MEDS ORDERED: *HR* Morphine 2 MG/ML SYRINGE IVP ONE (01:14)
[2018-01-27 01:29] LABS: Alanine Aminotransferase 35 Units/L (7-52); Albumin 3.8 g/dL (3.5-5.7); Albumin/Globulin Ratio 1.4 (1.1-2.2); Alkaline Phosphatase 73 Units/L (34-104); Aspartate Amino Transferase 43 Units/L (13-39); BUN/Creatinine Ratio 24 (6-26); Bilirubin,Total 1.8 mg/dL (0.3-1.0); Blood Urea Nitrogen 23 mg/dL (8-23); Calcium 9.1 mg/dL (8.6-10.3); Carbon Dioxide 24 mEq/L (23-29); Chloride 106 mEq/L (98-107); Chol/HDL Ratio 2.5 (0-4.9); Cholesterol 97 mg/dL (< 200); Globulin 2.7 g/dL (2.4-3.5); Glucose 192 mg/dL (70-105); HDL Cholesterol 39 mg/dL (40-59); LDL Cholesterol,Calculated 43 mg/dL (0-99); Osmolality,Calculated 293 (280-300); Potassium 3.7 mEq/L (3.5-5.1); Sodium 137 mEq/L (136-145); Total Protein 6.5 g/dL (6.4-8.9); Triglycerides 73 mg/dL (< 150); eGFR For African Americans > 60 (> 60); eGFR For Non-African Americans > 60 (> 60)
[2018-01-27 01:45] LABS: Thyroid Stimulating Hormone 1.358 mcIU/mL (0.340-5.600)
[2018-01-27] MEDS ORDERED: 0.9 % Sodium Chloride 250 ML ONE (02:35)
[2018-01-27 04:10] LABS: Basophils % 0.6 %; Mean Corpuscular Hemoglobin 33.4 pg (28.0-33.3); Red Cell Distribution Width 13.9 % (11.5-14.5)
[2018-01-27 04:12] LABS: Basophils # 0.1 K/mcL (0.0-0.2); Eosinophils # 0.3 K/mcL (0.0-0.6); Eosinophils % 3.2 %; Hematocrit 41.3 % (37.5-50.1); Hemoglobin 15.1 g/dL (12.9-16.9); Immature Granulocytes % 2.3 % (0-4); Immature Platelets 7.1 % (1.1-6.1); Lymphocytes # 1.7 K/mcL (0.6-4.6); Lymphocytes % 19.1 %; Mean Corpuscular HGB Conc 36.6 g/dL (31.6-35.5); Mean Corpuscular Volume 91.4 fL (83.0-100.0); Mean Platelet Volume 11.4 fL (9.4-12.4); Monocytes # 0.8 K/mcL (0.0-1.3); Monocytes % 8.7 %; Neutrophils # 5.8 K/mcL (1.6-8.9); Nucleated Red Blood Cells 0.3 /100 WBC (0); Red Blood Count 4.52 M/mcL (4.19-5.50); Segmented Neutrophils % 66.1 %
[2018-01-27 04:21] LABS: Platelet Count 73 K/mcL (140-400)
[2018-01-27] MEDS: Insulin LISPRO 300 UNITS/3 ML VIAL SQ SCH ×4 (07:33→22:02)
[2018-01-27] MEDS: Aspirin 81 MG TAB.CHEW PO SCH (07:42)
[2018-01-27 08:35] LABS: Estimated Average Glucose 229 mg/dl; Hemoglobin A1C 9.6 %
--- NOTE | 2018-01-27 11:10 | Internal Med Progress Note ---
Date of Encounter: 01/27/18 Time of Encounter: 11:06 - Assessment and plan (1) NSTEMI (non-ST elevated myocardial infarction) Current Visit: Yes Status: Acute Assessment and plan: Non-STEMI Highest troponin 1.14 Heparin drip was not started due to thrombocytopenia telemetry. Echocardiogram. Nitro drip per Cardiology. Platelet transfusion per Dr. Hough to increase platelets >50 for LHC and heparin use. Cardiac catheterization later today Cardiology recommendations appreciated (2) Thrombocytopenia Current Visit: Yes Status: Acute Assessment and plan: Acute on chronic thrombocytopenia w/platelets of 45. Pt. followed by Dr. Hough Hematology oncology consulted, recommended transfusion to bring platelet level greater than 50 for LHC/heparin use. (3) Type 2 diabetes mellitus Current Visit: Yes Status: Chronic Assessment and plan: Hx of DM controlled with insulin and oral anti-hyperglycemics. low-dose correction insulin sliding scale Hemoglobin A1c is 9.6 Qualifiers: Diabetes mellitus senior living insulin use: with intermediate accountant use Diabetes mellitus complication status: with hyperglycemia Qualified Code(s): E11.65 - Type 2 diabetes mellitus with hyperglycemia; Z79.4 - senior living (current) use of insulin; Z79.4 - senior living (current) use of insulin; Z79.4 - terminal block assembler (current ) use of insulin; Z79.4 - terminal block assembler (current) use of insulin (4) Skin cancer Current Visit: Yes Status: Chronic Assessment and plan: Hx of chronic basal cell skin carcinoma. Pt. reports still receiving treatments and sees Dr. Hough. (5) HLD (hyperlipidemia) Current Visit: Yes Status: Chronic Assessment and plan: Hx of chronic HLD. Lipitor. Qualifiers: Hyperlipidemia type: pure hypercholesterolemia Qualified Code(s): E78.00 - Pure hypercholesterolemia, unspecified; E78.0 - Pure hypercholesterolemia (6) Thyroid disease Current Visit: Yes Status: Chronic Assessment and plan: Hypothyroidism . Continue pts. Synthroid. (7) Previous inferior myocardial infarction older than 8 weeks Current Visit: Yes Status: Resolved Assessment and plan: Hx of previous LA in 2004 with no stents but CABG with double bypass in maker. (8) Aortic aneurysm, abdominal Current Visit: Yes Status: Chronic Assessment and plan: Hx of AAA. Stable currently. Qualifiers: Presence of rupture: without rupture Qualified Code(s): I71.4 - Abdominal aortic aneurysm, without rupture - Time Spent With Patient Total time spent is greater than 50% in coordination of care (as documented) at patient's floor/unit and/or counseling patient: - Subjective Interval history: Denies any chest pain, shortness of breath, no abdominal pain, fevers or chills , no diarrhea or dysuria - Constitutional Vitals: Temp Pulse Resp BP Pulse Ox 98.6 F 70 16 111/69 97 01/27/18 07:21 01/27/18 10:57 01/27/18 07:21 01/27/18 07:21 01/27/18 07:21 General appearance: Present: cooperative, A&O X 3, pleasant, no acute distress, answers questions appropriately - Head Head exam: Present: atraumatic, normocephalic - Eye Eye exam: Present: PERRL, conjuntiva pink, sclera anicteric Pupils: Present: PERRL - Neck Neck exam general surgery: Present: supple, trachea midline. Absent: lymphadenopathy - Respiratory Respiratory exam: Present: CTAB. Absent: accessory muscle use, rales, rhonchi, wheezes - Cardiovascular Cardiovascular exam: Present: RRR, +S1, +S2. Absent: diastolic murmur, gallop, rubs, systolic murmur - GI/Abdominal GI/Abdominal exam: Present: normal bowel sounds, soft, no peritoneal signs. Absent: distended, tenderness - Extremities Exam Extremities exam: Present: warm, radial pulses palpable and symmetrical. Absent : calf tenderness, cyanotic, pedal edema - Neurological Exam Neurological exam: Present: CN II-XII intact, oriented X3, no focal deficits. Absent: pronater drift, facial droop, speech deficit - Skin Skin exam: Present: dry, intact Internal Medicine: Result - Labs CBC & Chem 7: 01/27/18 03:54 01/27/18 00:30 Labs: Short CBC 01/27/18 01/27/18 Range/Units 00:30 03:54 WBC 7.0 8.7 (4.3-11.1) K/mcL Hgb 15.1 15.1 (12.9-16.9) g/dL Hct 41.8 41.3 (37.5-50.1) % Plt Count 50 L 73 L (140-400) K/mcL Neutrophils # 4.5 5.8 (1.6-8.9) K/mcL BMP 01/27/18 00:30 Sodium 137 Potassium 3.7 Chloride 106 Carbon Dioxide 24 BUN 23 Creatinine 0.97 Glucose 192 H Calcium 9.1 Cardiac Enzymes 01/26/18 01/26/18 Range/Units 17:35 22:57 Troponin I 0.72 H* 1.14 H* (< 0.04) ng/mL Liver Function 01/27/18 Range/Units 00:30 Total Bilirubin 1.8 H (0.3-1.0) mg/dL AST 43 H (13-39) Units/L ALT 35 (7-52) Units/L Alkaline Phosphatase 73 (34-104) Units/L Albumin 3.8 (3.5-5.7) g/dL - ABG Interpretation ABG results: PT/INR, D-dimer PT 13.8 Seconds (9.4-12.1) H 01/26/18 11:39 - Impressions Impressions Echocardiogram 01/27/18 14:24 Impressions: LVEF 55%. Normal LV chamber size, wall thickness and overall function. Mild left ventricular diastolic dysfunction. Atypical septal motion consistent with post-operative status. Normal right ventricular structure and function. No evidence of pulmonary hypertension. No significant valvular dysfunction. In some views, there is a color jet that is not well defined, but apparent in the RV and adjacent to the interventricular septum that gives the appearance of a VSD. Consider further imaging to evaluate. Left Ventricular Wall Motion: Rest Echo Findings The basal inferior wall was hypokinetic. All other wall segments showed normal motion. Findings: Study Quality * Technically adequate exam. ECG Findings * Sinus rhythm with PVCs. Left Ventricle * LVEF 55%. * Normal LV chamber size, wall thickness and overall function. * Mild left ventricular diastolic dysfunction. * Atypical septal motion consistent with post-operative status. Right Ventricle * Normal right ventricular structure and function. Left Atrium * Mildly dilated left atrium. Right Atrium * Mildly dilated right atrium. Aortic Valve * Trileaflet aortic valve. * Mildly calcified aortic valve leaflets. * No aortic regurgitation. * No aortic stenosis. Mitral Valve * Normal mitral valve structure and function. * No mitral regurgitation. * No mitral stenosis. Tricuspid Valve * Normal tricuspid valve structure and function. * Trace tricuspid regurgitation. * No evidence of pulmonary hypertension. Pulmonic Valve * Normal pulmonic valve structure and function. * Trace pulmonic regurgitation. Aorta * Normally sized aortic root. Pericardium * The pericardium appears normal. IVC * Normal IVC dimensions and inspiratory collapse. Pulmonary Artery * Normal visualized portions of the main pulmonary artery. - VTE Documentation of Mechanical Device: Intermittent pneumatic compression device Consult Discharge Plan - Plan Referrals: Bruce Shannon MD [Primary Care Provider] - (Patient is to call Family to make a follow up hospital appointment. Thank you)
[2018-01-27] MEDS: Nitroglycerin 25 MG/250 ML INFUS..BTL IVC SCH ×2 (11:12→11:48)
--- NOTE | 2018-01-27 12:04 | Cardiology Progress Note ---
Date of Encounter: 01/27/18 Time of Encounter: 10:00 Assessment and Plan (1) NSTEMI (non-ST elevated myocardial infarction) Current Visit: Yes Status: Acute Discussed options with patient including continued medical management versus LHC. Given history of chronic thrombocytopenia, age and cirrhosis, will try to maximize medical management. If med tx fails and continues having uncontrolled angina, patient aware of high likelihood of bleeding given his condition and during use of DAPT that has a significant chance of morbidity and increased risk of with LHC/PCI. (2) Thrombocytopenia Current Visit: Yes Status: Acute Platelet transfusion, dw and consult hematology. patient would need close monitoring of platelets as outpatient with possible transfusions if proceeding with PCI/stent. Discussion w patient/family: The assessment and plan as outlined above was discussed with the patient and/or family members who expressed understanding and agreement. All questions were answered. Thank you for involving us in the care of your patient. Please call with any questions. Subjective Principal diagnosis: NSTEMI Interval history: Had episode of severe chest discomfort overnight, required NTG to 30ug. He is currently comfortable. He notes longstanding history of murmur since 1950s and VSD since [facility] 2004. He was very active until last April after prostate surgery and reports he has slowed down since then but easily completes ADLs and normal activities. Objective Vital Signs, Last 4 Hours Pulse 01/27/18 10:57 70 General: Conversant HEENT: Atraumatic Neck: No JVD Cardiac: Reg Rate and Rhythm, No Murmur, Other (no murmur appreciated on exam) Lungs: Other (bibasilar crackles) Neuro: Alert and responsive Abdomen: Soft Skin: No rashes noted on visualized skin Musculoskeletal: No Chest Wall Tenderness Extremities: No Edema Results 01/27/18 03:54 01/27/18 00:30 Lab Results 01/26/18 01/26/18 01/27/18 17:35 22:57 00:30 WBC Hgb Hct Plt Count Sodium 137 Potassium 3.7 Chloride 106 Carbon Dioxide 24 BUN 23 Creatinine 0.97 Glucose 192 H Calcium 9.1 Magnesium 2.0 Total Bilirubin 1.8 H AST 43 H ALT 35 Alkaline Phosphatase 73 Troponin I 0.72 H* 1.14 H* TSH 01/27/18 01/27/18 01/27/18 00:30 00:30 03:54 WBC 7.0 8.7 Hgb 15.1 15.1 Hct 41.8 41.3 Plt Count 50 L 73 L Sodium Potassium Chloride Carbon Dioxide BUN Creatinine Glucose Calcium Magnesium Total Bilirubin AST ALT Alkaline Phosphatase Troponin I TSH 1.358 01/27/18 11:04 WBC Hgb Hct Plt Count Sodium Potassium Chloride Carbon Dioxide BUN Creatinine Glucose Calcium Magnesium Total Bilirubin AST ALT Alkaline Phosphatase Troponin I 4.65 H* TSH - VTE Documentation of Mechanical Device: Intermittent pneumatic compression device Consult Discharge Plan - Plan Referrals: Shannon,Bruce Fuchs MD [Primary Care Provider] - (Patient is to call Family to make a follow up hospital appointment. Thank you)
--- NOTE | 2018-01-27 19:07 | Oncology Inp Progress Note ---
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 He has no evidence of active bleeding. As cardiac catheterization has been deferred, and no specific recommendations moving forward from my perspective. He is to watch for signs and symptoms of bleeding and bruising. I will arrange for outpatient follow-up with Dr. Hough. We will otherwise sign off. Oncology: Subj Interval history: Mr. Thomson is doing well. Cardiac catheterization has been deferred. Medical management is being optimized. He physically is doing well. His family at his bedside. Denies any chest pain. His breathing is stable. No new shortness of breath or dyspnea on exertion. No bleeding symptoms of epistaxis, hemoptysis, hematemesis or melena. He did receive 2 units of platelets yesterday with an appropriate response to 73 ,000. - Constitutional Vitals: Vital Signs Temp Pulse Resp BP Pulse Ox 01/27/18 18:05 73 01/27/18 16:46 98.7 F 76 18 102/69 93 01/27/18 11:53 98.5 F 79 16 109/77 95 01/27/18 10:57 70 01/27/18 07:25 70 01/27/18 07:21 98.6 F 80 16 111/69 97 01/27/18 06:00 61 120/82 01/27/18 05:30 73 111/69 01/27/18 05:16 97.8 F 86 16 113/70 97 01/27/18 04:30 67 110/72 01/27/18 03:30 58 98/63 01/27/18 03:00 60 99/66 01/27/18 02:57 97.9 F 84 16 99/66 96 01/27/18 02:54 55 01/27/18 02:43 97.6 F 74 16 117/78 96 01/27/18 02:42 97.8 F 74 16 96/62 94 01/27/18 02:30 67 82/52 01/27/18 02:15 59 84/60 01/27/18 02:05 60 117/78 01/27/18 01:33 78 14 120/70 96 01/27/18 01:27 76 12 118/73 96 01/27/18 00:54 76 125/72 01/27/18 00:50 75 128/77 01/27/18 00:46 65 128/75 01/27/18 00:42 60 133/82 01/26/18 23:40 97.8 F 66 16 145/86 94 01/26/18 21:44 97.5 F L 64 14 134/73 93 01/26/18 19:43 95 01/26/18 19:40 73 14 119/77 95 Intake and Output 01/27/18 01/27/18 01/28/18 08:59 16:59 00:59 Intake Total 480 / 480 405 / 405 240 / 240 Output Total 500 / 500 Balance -20 / -20 405 / 405 240 / 240 Intake: IV Fluids 30 / 30 165 / 165 Nitroglycerin Premix 25 MG/250 30 / 30 165 / 165 ML 25 mg In 250 ml @ 5 MCG/MIN 3 mls/hr IVC .Q24H [facility] Rx#: [id number] Oral 240 / 240 240 / 240 Blood Product 450 / 450 Platelet Pheresis Lp Irr 1st 450 / 450 Unit [id number] Output: Urine 500 / 500 Other: Meal NPO Lunch Dinner Percent of Meal Consumed 0% 20% 25% Weight 89 kg Blood Glucose* 175 262 Patient Weight 01/28/18 00:59 Weight 89 kg General appearance: cooperative, obese - Head Head exam: Present: atraumatic, normal inspection, normocephalic - Eye Eye exam: Present: normal appearance, conjuntiva pink, sclera anicteric - ENT ENT exam: Present: mucous membranes moist, normal oropharynx - Neck Neck exam: Present: full ROM, normal inspection - Respiratory Respiratory exam: Present: decreased breath sounds, CTAB - Cardiovascular Cardiovascular exam: Present: RRR - GI/Abdominal GI/Abdominal exam: Present: normal bowel sounds, soft - Extremities Exam Extremities exam: Present: normal inspection, pedal edema - Neurological Exam Neurological exam: Present: alert, oriented X3, no focal deficits Oncology: Obj Data - Labs CBC & Chem 7: 01/27/18 03:54 01/27/18 00:30 Labs: Laboratory Results - last 24 hr 01/26/18 01/26/18 01/26/18 14:41 16:53 20:06 WBC RBC Hgb Hct MCV MCH MCHC RDW Plt Count MPV Immature Gran % Seg Neutrophils % Lymphocytes % Monocytes % Eosinophils % Basophils % Neutrophils # Lymphocytes # Monocytes # Eosinophils # Basophils # Nucleated RBCs/100 WBC Immature Plt Fraction Sodium Potassium Chloride Carbon Dioxide BUN Creatinine Est GFR ( Amer) Est GFR (Non-Af Amer) BUN/Creatinine Ratio Glucose POC Glucose 243 H 278 H Est Mean Plasma Glucose Hemoglobin A1c Calculated Osmolality Calcium Magnesium Total Bilirubin AST ALT Alkaline Phosphatase Troponin I Serum Total Protein Albumin Globulin Albumin/Globulin Ratio Triglycerides Cholesterol LDL Cholesterol, Calc VLDL Cholesterol, Calc HDL Cholesterol Cholesterol/HDL Ratio TSH Free T4 Blood Type A POSITIVE Antibody Screen NEGATIVE 01/26/18 01/27/18 01/27/18 22:57 00:30 00:30 WBC RBC Hgb Hct MCV MCH MCHC RDW Plt Count MPV Immature Gran % Seg Neutrophils % Lymphocytes % Monocytes % Eosinophils % Basophils % Neutrophils # Lymphocytes # Monocytes # Eosinophils # Basophils # Nucleated RBCs/100 WBC Immature Plt Fraction Sodium 137 Potassium 3.7 Chloride 106 Carbon Dioxide 24 BUN 23 Creatinine 0.97 Est GFR ( Amer) > 60 Est GFR (Non-Af Amer) > 60 BUN/Creatinine Ratio 24 Glucose 192 H POC Glucose Est Mean Plasma Glucose 229 Hemoglobin A1c 9.6 H Calculated Osmolality 293 Calcium 9.1 Magnesium 2.0 Total Bilirubin 1.8 H AST 43 H ALT 35 Alkaline Phosphatase 73 Troponin I 1.14 H* Serum Total Protein 6.5 Albumin 3.8 Globulin 2.7 Albumin/Globulin Ratio 1.4 Triglycerides 73 Cholesterol 97 LDL Cholesterol, Calc 43 VLDL Cholesterol, Calc 15 HDL Cholesterol 39 L Cholesterol/HDL Ratio 2.5 TSH Free T4 Blood Type Antibody Screen 01/27/18 01/27/18 01/27/18 00:30 00:30 03:54 WBC 7.0 8.7 RBC 4.55 4.52 Hgb 15.1 15.1 Hct 41.8 41.3 MCV 91.9 91.4 MCH 33.2 33.4 H MCHC 36.1 H 36.6 H RDW 13.9 13.9 Plt Count 50 L 73 L MPV 11.7 11.4 Immature Gran % 0.7 2.3 Seg Neutrophils % 63.9 66.1 Lymphocytes % 23.6 19.1 Monocytes % 8.4 8.7 Eosinophils % 3.1 3.2 Basophils % 0.3 0.6 Neutrophils # 4.5 5.8 Lymphocytes # 1.7 1.7 Monocytes # 0.6 0.8 Eosinophils # 0.2 0.3 Basophils # 0.0 0.1 Nucleated RBCs/100 WBC 0.3 H Immature Plt Fraction 7.7 H 7.1 H Sodium Potassium Chloride Carbon Dioxide BUN Creatinine Est GFR ( Amer) Est GFR (Non-Af Amer) BUN/Creatinine Ratio Glucose POC Glucose Est Mean Plasma Glucose Hemoglobin A1c Calculated Osmolality Calcium Magnesium Total Bilirubin AST ALT Alkaline Phosphatase Troponin I Serum Total Protein Albumin Globulin Albumin/Globulin Ratio Triglycerides Cholesterol LDL Cholesterol, Calc VLDL Cholesterol, Calc HDL Cholesterol Cholesterol/HDL Ratio TSH 1.358 Free T4 1.06 Blood Type Antibody Screen 01/27/18 11:04 WBC RBC Hgb Hct MCV MCH MCHC RDW Plt Count MPV Immature Gran % Seg Neutrophils % Lymphocytes % Monocytes % Eosinophils % Basophils % Neutrophils # Lymphocytes # Monocytes # Eosinophils # Basophils # Nucleated RBCs/100 WBC Immature Plt Fraction Sodium Potassium Chloride Carbon Dioxide BUN Creatinine Est GFR ( Amer) Est GFR (Non-Af Amer) BUN/Creatinine Ratio Glucose POC Glucose Est Mean Plasma Glucose Hemoglobin A1c Calculated Osmolality Calcium Magnesium Total Bilirubin AST ALT Alkaline Phosphatase Troponin I 4.65 H* Serum Total Protein Albumin Globulin Albumin/Globulin Ratio Triglycerides Cholesterol LDL Cholesterol, Calc VLDL Cholesterol, Calc HDL Cholesterol Cholesterol/HDL Ratio TSH Free T4 Blood Type Antibody Screen - Impressions Impressions Echocardiogram 01/27/18 14:24 Impressions: LVEF 55%. Normal LV chamber size, wall thickness and overall function. Mild left ventricular diastolic dysfunction. Atypical septal motion consistent with post-operative status. Normal right ventricular structure and function. No evidence of pulmonary hypertension. No significant valvular dysfunction. In some views, there is a color jet that is not well defined, but apparent in the RV and adjacent to the interventricular septum that gives the appearance of a VSD. Consider further imaging to evaluate. Left Ventricular Wall Motion: Rest Echo Findings The basal inferior wall was hypokinetic. All other wall segments showed normal motion. Findings: Study Quality * Technically adequate exam. ECG Findings * Sinus rhythm with PVCs. Left Ventricle * LVEF 55%. * Normal LV chamber size, wall thickness and overall function. * Mild left ventricular diastolic dysfunction. * Atypical septal motion consistent with post-operative status. Right Ventricle * Normal right ventricular structure and function. Left Atrium * Mildly dilated left atrium. Right Atrium * Mildly dilated right atrium. Aortic Valve * Trileaflet aortic valve. * Mildly calcified aortic valve leaflets. * No aortic regurgitation. * No aortic stenosis. Mitral Valve * Normal mitral valve structure and function. * No mitral regurgitation. * No mitral stenosis. Tricuspid Valve * Normal tricuspid valve structure and function. * Trace tricuspid regurgitation. * No evidence of pulmonary hypertension. Pulmonic Valve * Normal pulmonic valve structure and function. * Trace pulmonic regurgitation. Aorta * Normally sized aortic root. Pericardium * The pericardium appears normal. IVC * Normal IVC dimensions and inspiratory collapse. Pulmonary Artery * Normal visualized portions of the main pulmonary artery. - ABG Interpretation ABG results: PT/INR, D-dimer PT 13.8 Seconds (9.4-12.1) H 01/26/18 11:39 Consult Discharge Plan - Plan Referrals: Shiva,Bruce Fuchs MD [Primary Care Provider] - (Patient is to call Family to make a follow up hospital appointment. Thank you)
[2018-01-27] MEDS: *HR* Acetylcysteine 20% 600 MG/3 ML ORAL SYRINGE PO SCH (22:02)
[2018-01-27] MEDS: Insulin DETEMIR 100 UNIT/ML X5UNITS SQ SCH (22:03)
[2018-01-27] MEDS: Ranolazine 500 MG TAB.ER.12H PO SCH (22:24)
[2018-01-27] MEDS: Cyanocobalamin (B-12) 1,000 MCG TABLET PO SCH (22:24)
[2018-01-27] MEDS: Cholecalciferol (D-3) 1,000 UNIT TABLET PO SCH (22:24)
[2018-01-27] MEDS: Multivit/Ca/Min/Fe/FA 1 TAB TABLET PO SCH (22:24)
[2018-01-27] MEDS ORDERED: 0.9 % Sodium Chloride 500 ML ONE (22:26)
[2018-01-28] MEDS: Nitroglycerin 25 MG/250 ML INFUS..BTL IVC SCH ×3 (03:28→17:23)
[2018-01-28] MEDS ORDERED: traMADol 50 MG TABLET PO ONE (03:55)
[2018-01-28 05:38] LABS: Lymphocytes % 17.3 %
[2018-01-28 05:40] LABS: Basophils % 0.2 %; Eosinophils # 0.2 K/mcL (0.0-0.6); Hematocrit 39.9 % (37.5-50.1); Hemoglobin 14.3 g/dL (12.9-16.9); Immature Granulocytes % 6.1 % (0-4); Immature Platelets 6.1 % (1.1-6.1); Lymphocytes # 1.7 K/mcL (0.6-4.6); Mean Corpuscular HGB Conc 35.8 g/dL (31.6-35.5); Mean Corpuscular Hemoglobin 33.1 pg (28.0-33.3); Mean Corpuscular Volume 92.4 fL (83.0-100.0); Monocytes % 10.4 %; Neutrophils # 6.1 K/mcL (1.6-8.9); Red Blood Count 4.32 M/mcL (4.19-5.50)
[2018-01-28 05:45] LABS: Platelet Count 65 K/mcL (140-400)
[2018-01-28 05:58] LABS: Alanine Aminotransferase 34 Units/L (7-52); Albumin 3.9 g/dL (3.5-5.7); Albumin/Globulin Ratio 1.5 (1.1-2.2); Alkaline Phosphatase 85 Units/L (34-104); Aspartate Amino Transferase 42 Units/L (13-39); BUN/Creatinine Ratio 28 (6-26); Bilirubin,Total 2.8 mg/dL (0.3-1.0); Blood Urea Nitrogen 22 mg/dL (8-23); Calcium 9.4 mg/dL (8.6-10.3); Carbon Dioxide 23 mEq/L (23-29); Chloride 105 mEq/L (98-107); Globulin 2.6 g/dL (2.4-3.5); Glucose 180 mg/dL (70-105); Osmolality,Calculated 288 (280-300); Potassium 3.7 mEq/L (3.5-5.1); Sodium 135 mEq/L (136-145); Total Protein 6.5 g/dL (6.4-8.9); eGFR For African Americans > 60 (> 60); eGFR For Non-African Americans > 60 (> 60)
[2018-01-28] MEDS: Isosorbide MONOnitrate (24 HR) 60 MG TAB.ER.24H PO SCH (08:30)
[2018-01-28] MEDS: Aspirin 81 MG TAB.CHEW PO SCH (08:32)
[2018-01-28] MEDS: Ranolazine 500 MG TAB.ER.12H PO SCH ×2 (08:33→20:29)
[2018-01-28] MEDS: *HR* Acetylcysteine 20% 600 MG/3 ML ORAL SYRINGE PO SCH (08:33)
[2018-01-28] MEDS: Insulin LISPRO 300 UNITS/3 ML VIAL SQ SCH ×4 (08:36→20:37)
--- NOTE | 2018-01-28 09:44 | Cardiology Progress Note ---
Date of Encounter: 01/28/18 Time of Encounter: 09:30 Assessment and Plan (1) NSTEMI (non-ST elevated myocardial infarction) Current Visit: Yes Status: Acute Discussed patient yesterday with Interventionalist in filling station laborer Tuesday - Dr. Amaro - for LHC to be completed who brought up valid concerns with me/rounding team regarding patient's thrombocytopenia/age/cirrhosis/PAD and high risk for bleeding complications. After that discussion and patient echo showing normal EF, will try to advance antianginal therapy but suspect this will not be adequate to control his symptoms. Unfortunately, he did have recurrence in severe chest discomfort overnight, restarted on NTG drip. Troponin today pending. If troponin markedly elevated from last, will cath today. I discussed the high bleeding risk with patient and that it could lead to significant morbidity and possibly , overall he still prefers to proceed with LHC/PCI rather than "live on pills." I did tell him that he would be on medications either way, but he would still like the LHC. Awaiting troponin. (2) Thrombocytopenia Current Visit: Yes Status: Acute Platelet transfusion, dw and consult hematology. Patient would need close monitoring of platelets as outpatient with possible transfusions if proceeding with PCI/stent. Discussion w patient/family: The assessment and plan as outlined above was discussed with the patient and/or family members who expressed understanding and agreement. All questions were answered. Thank you for involving us in the care of your patient. Please call with any questions. Subjective Principal diagnosis: NSTEMI Interval history: severe chest discomfort overnight requiring restarting NTG drip Objective Vital Signs, Last 4 Hours Temp Pulse Resp BP Pulse Ox 01/28/18 08:52 114/56 01/28/18 07:30 92 16 100/61 96 01/28/18 06:59 98.4 F 90 18 92 General: Conversant HEENT: Atraumatic Neck: No JVD Cardiac: Reg Rate and Rhythm Lungs: Normal Breath Sounds Neuro: Alert and responsive Skin: No rashes noted on visualized skin Musculoskeletal: No Chest Wall Tenderness Extremities: No Edema Results 01/28/18 04:58 01/28/18 04:58 Lab Results 01/27/18 01/28/18 01/28/18 11:04 04:58 04:58 WBC 9.6 Hgb 14.3 Hct 39.9 Plt Count 65 L Sodium 135 L Potassium 3.7 Chloride 105 Carbon Dioxide 23 BUN 22 Creatinine 0.80 Glucose 180 H Calcium 9.4 Total Bilirubin 2.8 H AST 42 H ALT 34 Alkaline Phosphatase 85 Troponin I 4.65 H* - VTE Documentation of Mechanical Device: Intermittent pneumatic compression device Consult Discharge Plan - Plan Referrals: Shiva,Bruce Fuchs MD [Primary Care Provider] - (Patient is to call Family to make a follow up hospital appointment. Thank you)
--- NOTE | 2018-01-28 13:41 | Internal Med Progress Note ---
Date of Encounter: 01/28/18 Time of Encounter: 13:39 - Assessment and plan (1) NSTEMI (non-ST elevated myocardial infarction) Current Visit: Yes Status: Acute Assessment and plan: Non-STEMI Highest troponin 4.65, trending down Heparin drip was not started due to thrombocytopenia telemetry. Nitro drip per Cardiology. Platelet transfusion per Oncology ( signed off) to increase platelets >50 for LHC . Cardiac catheterization to be considered possibly for Tuesday Cardiology recommendations appreciated Echocardiogram showed EF 55% with mild diastolic dysfunction (2) Thrombocytopenia Current Visit: Yes Status: Acute Assessment and plan: Acute on chronic thrombocytopenia w/platelets of 45. Pt. followed by Dr. Hough Hematology oncology consulted, recommended transfusion to bring platelet level greater than 50 for LHC/heparin use. (3) Type 2 diabetes mellitus Current Visit: Yes Status: Chronic Assessment and plan: Hx of DM controlled with insulin and oral anti-hyperglycemics. 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 Pt. reports still receiving treatments and sees Dr. Hough. (5) HLD (hyperlipidemia) Current Visit: Yes Status: Chronic Assessment and plan: Hx of chronic HLD. Lipitor. Qualifiers: Hyperlipidemia type: pure hypercholesterolemia Qualified Code(s): E78.00 - Pure hypercholesterolemia, unspecified; E78.0 - Pure hypercholesterolemia (6) Thyroid disease Current Visit: Yes Status: Chronic Assessment and plan: Hypothyroidism . Continue pts. Synthroid. 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 (8) Aortic aneurysm, abdominal Current Visit: Yes Status: Chronic Assessment and plan: Hx of AAA. Stable currently. Qualifiers: Presence of rupture: without rupture Qualified Code(s): I71.4 - Abdominal aortic aneurysm, without rupture - Time Spent With Patient Total time spent is greater than 50% in coordination of care (as documented) at patient's floor/unit and/or counseling patient: - Subjective Interval history: Had some chest discomfort in the morning. Denies any chest pain at the moment shortness of breath, no abdominal pain, fevers or chills, no diarrhea or dysuria - Constitutional Vitals: Temp Pulse Resp BP Pulse Ox 98.5 F 84 18 131/85 92 01/28/18 11:11 01/28/18 12:30 01/28/18 11:11 01/28/18 12:30 01/28/18 11:11 General appearance: Present: cooperative, A&O X 3, pleasant, no acute distress, answers questions appropriately - Head Head exam: Present: atraumatic, normocephalic - Eye Eye exam: Present: PERRL, conjuntiva pink, sclera anicteric Pupils: Present: PERRL - Neck Neck exam general surgery: Present: supple, trachea midline. Absent: lymphadenopathy - Respiratory Respiratory exam: Present: CTAB. Absent: accessory muscle use, rales, rhonchi, wheezes - Cardiovascular Cardiovascular exam: Present: RRR, +S1, +S2. Absent: diastolic murmur, gallop, rubs, systolic murmur - GI/Abdominal GI/Abdominal exam: Present: normal bowel sounds, soft, no peritoneal signs. Absent: distended, tenderness - Extremities Exam Extremities exam: Present: warm, radial pulses palpable and symmetrical. Absent : calf tenderness, cyanotic, pedal edema - Neurological Exam Neurological exam: Present: CN II-XII intact, oriented X3, no focal deficits. Absent: pronater drift, facial droop, speech deficit - Skin Skin exam: Present: dry, intact Internal Medicine: Result - Labs CBC & Chem 7: 01/28/18 04:58 01/28/18 04:58 Labs: Short CBC 01/28/18 Range/Units 04:58 WBC 9.6 (4.3-11.1) K/mcL Hgb 14.3 (12.9-16.9) g/dL Hct 39.9 (37.5-50.1) % Plt Count 65 L (140-400) K/mcL Neutrophils # 6.1 (1.6-8.9) K/mcL BMP 01/28/18 04:58 Sodium 135 L Potassium 3.7 Chloride 105 Carbon Dioxide 23 BUN 22 Creatinine 0.80 Glucose 180 H Calcium 9.4 Cardiac Enzymes 01/28/18 Range/Units 09:46 Troponin I 3.33 H* (< 0.04) ng/mL Liver Function 01/28/18 Range/Units 04:58 Total Bilirubin 2.8 H (0.3-1.0) mg/dL AST 42 H (13-39) Units/L ALT 34 (7-52) Units/L Alkaline Phosphatase 85 (34-104) Units/L Albumin 3.9 (3.5-5.7) g/dL - ABG Interpretation ABG results: PT/INR, D-dimer PT 13.8 Seconds (9.4-12.1) H 01/26/18 11:39 - VTE Documentation of Mechanical Device: Intermittent pneumatic compression device Consult Discharge Plan - Plan Referrals: Shannon,Bruce Fuchs MD [Primary Care Provider] - (Patient is to call Family to make a follow up hospital appointment. Thank you)
[2018-01-28] MEDS: Cyanocobalamin (B-12) 1,000 MCG TABLET PO SCH (20:30)
[2018-01-28] MEDS: Multivit/Ca/Min/Fe/FA 1 TAB TABLET PO SCH (20:30)
[2018-01-28] MEDS: Cholecalciferol (D-3) 1,000 UNIT TABLET PO SCH (20:30)
[2018-01-28] MEDS: Insulin DETEMIR 100 UNIT/ML X5UNITS SQ SCH (20:30)
[2018-01-29 03:35] LABS: Basophils % 0.3 %
[2018-01-29 03:37] LABS: Eosinophils # 0.2 K/mcL (0.0-0.6); Eosinophils % 2.3 %; Hematocrit 39.7 % (37.5-50.1); Hemoglobin 14.4 g/dL (12.9-16.9); Immature Granulocytes % 1.8 % (0-4); Immature Platelets 7.2 % (1.1-6.1); Lymphocytes # 1.6 K/mcL (0.6-4.6); Mean Corpuscular HGB Conc 36.3 g/dL (31.6-35.5); Mean Corpuscular Hemoglobin 33.8 pg (28.0-33.3); Mean Corpuscular Volume 93.2 fL (83.0-100.0); Mean Platelet Volume 11.3 fL (9.4-12.4); Monocytes # 0.9 K/mcL (0.0-1.3); Monocytes % 11.6 %; Neutrophils # 4.9 K/mcL (1.6-8.9); Red Blood Count 4.26 M/mcL (4.19-5.50); Red Cell Distribution Width 14.1 % (11.5-14.5)
[2018-01-29 03:38] LABS: Platelet Count 53 K/mcL (140-400)
[2018-01-29 03:54] LABS: Alanine Aminotransferase 34 Units/L (7-52); Albumin 3.5 g/dL (3.5-5.7); Albumin/Globulin Ratio 1.3 (1.1-2.2); Alkaline Phosphatase 84 Units/L (34-104); Aspartate Amino Transferase 37 Units/L (13-39); BUN/Creatinine Ratio 28 (6-26); Bilirubin,Total 2.9 mg/dL (0.3-1.0); Blood Urea Nitrogen 24 mg/dL (8-23); Calcium 9.2 mg/dL (8.6-10.3); Carbon Dioxide 25 mEq/L (23-29); Chloride 104 mEq/L (98-107); Globulin 2.7 g/dL (2.4-3.5); Glucose 142 mg/dL (70-105); Osmolality,Calculated 284 (280-300); Sodium 134 mEq/L (136-145); Total Protein 6.2 g/dL (6.4-8.9); eGFR For African Americans > 60 (> 60); eGFR For Non-African Americans > 60 (> 60)
[2018-01-29] MEDS: Nitroglycerin 25 MG/250 ML INFUS..BTL IVC SCH ×2 (07:33→16:51)
[2018-01-29] MEDS: Aspirin 81 MG TAB.CHEW PO SCH (08:32)
[2018-01-29] MEDS: Insulin LISPRO 300 UNITS/3 ML VIAL SQ SCH ×4 (08:32→20:47)
[2018-01-29] MEDS: Isosorbide MONOnitrate (24 HR) 60 MG TAB.ER.24H PO SCH (08:34)
[2018-01-29] MEDS: Ranolazine 500 MG TAB.ER.12H PO SCH ×2 (08:34→20:46)
[2018-01-29] MEDS ORDERED: Isosorbide MONOnitrate (24 HR) 60 MG TAB.ER.24H PO SCH (10:15)
--- NOTE | 2018-01-29 10:17 | Cardiology Progress Note ---
Date of Encounter: 01/29/18 Time of Encounter: 10:20 Assessment and Plan (1) NSTEMI (non-ST elevated myocardial infarction) Current Visit: Yes Status: Acute Troponin downtrending, did not require NTG drip overnight. Will increase imdur and ambulate today. If he continues having severe chest discomfort plan on [facility] tuesday with plt count >50 (transfuse) with plavix load. (2) Thrombocytopenia Current Visit: Yes Status: Acute Platelet transfusion, dw and consult hematology. Patient would need close monitoring of platelets as outpatient with possible transfusions if proceeding with PCI/stent. Discussion w patient/family: The assessment and plan as outlined above was discussed with the patient and/or family members who expressed understanding and agreement. All questions were answered. Thank you for involving us in the care of your patient. Please call with any questions. Subjective Principal diagnosis: NSTEMI Interval history: very mild chest discomfort overnight, no NTG drip. has not been ambulating Objective Vital Signs, Last 4 Hours Temp Pulse Resp BP Pulse Ox 01/29/18 07:52 98 F 81 20 116/75 96 General: Conversant HEENT: Atraumatic Neck: No JVD Cardiac: Reg Rate and Rhythm Lungs: Other (bibasilar crackles) Neuro: Alert and responsive Abdomen: Soft Skin: No rashes noted on visualized skin Musculoskeletal: No Chest Wall Tenderness Extremities: No Edema Results 01/29/18 03:21 01/29/18 03:21 Lab Results 01/28/18 01/29/18 01/29/18 09:46 03:21 03:21 WBC 7.7 Hgb 14.4 Hct 39.7 Plt Count 53 L Sodium 134 L Potassium 4.0 Chloride 104 Carbon Dioxide 25 BUN 24 H Creatinine 0.85 Glucose 142 H Calcium 9.2 Total Bilirubin 2.9 H AST 37 ALT 34 Alkaline Phosphatase 84 Troponin I 3.33 H* - VTE Documentation of Mechanical Device: Intermittent pneumatic compression device Consult Discharge Plan - Plan Referrals: Bruce Shannon MD [Primary Care Provider] - (Patient is to call Family to make a follow up hospital appointment. Thank you)
--- NOTE | 2018-01-29 14:23 | Internal Med Progress Note ---
Date of Encounter: 01/29/18 Time of Encounter: 14:22 - Assessment and plan (1) NSTEMI (non-ST elevated myocardial infarction) Current Visit: Yes Status: Acute Assessment and plan: Non-STEMI Highest troponin 4.65, trending down Heparin drip was not started due to thrombocytopenia telemetry. Nitro drip was discontinued per Cardiology. Platelet transfusion per Oncology ( signed off) to increase platelets >50 for LHC . Cardiac catheterization to be considered possibly for Tuesday Cardiology recommendations appreciated Echocardiogram showed EF 55% with mild diastolic dysfunction (2) Thrombocytopenia Current Visit: Yes Status: Acute Assessment and plan: Acute on chronic thrombocytopenia w/platelets of 45. Pt on admission. followed by Dr. Hough Hematology oncology consulted, recommended transfusion to bring platelet level greater than 50 for LHC/heparin use. (3) Type 2 diabetes mellitus Current Visit: Yes Status: Chronic Assessment and plan: Hx of DM controlled with insulin and oral anti-hyperglycemics. 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 Pt. reports still receiving treatments and sees Dr. Hough. (5) HLD (hyperlipidemia) Current Visit: Yes Status: Chronic Assessment and plan: Hx of chronic HLD. Lipitor. Qualifiers: Hyperlipidemia type: pure hypercholesterolemia Qualified Code(s): E78.00 - Pure hypercholesterolemia, unspecified; E78.0 - Pure hypercholesterolemia (6) Thyroid disease Current Visit: Yes Status: Chronic Assessment and plan: Hypothyroidism . Continue pts. Synthroid. 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 (8) Aortic aneurysm, abdominal Current Visit: Yes Status: Chronic Assessment and plan: Hx of AAA. Stable currently. Qualifiers: Presence of rupture: without rupture Qualified Code(s): I71.4 - Abdominal aortic aneurysm, without rupture - Time Spent With Patient Total time spent is greater than 50% in coordination of care (as documented) at patient's floor/unit and/or counseling patient: - Subjective Interval history: Denies chest discomfort Denies any chest pain at the moment shortness of breath, no abdominal pain, fevers or chills, no diarrhea or dysuria - Constitutional Vitals: Temp Pulse Resp BP Pulse Ox 98.8 F 74 19 98/64 94 01/29/18 12:05 01/29/18 12:05 01/29/18 12:05 01/29/18 12:05 01/29/18 12:05 General appearance: Present: cooperative, A&O X 3, pleasant, no acute distress, answers questions appropriately - Head Head exam: Present: atraumatic, normocephalic - Eye Eye exam: Present: PERRL, conjuntiva pink, sclera anicteric Pupils: Present: PERRL - Neck Neck exam general surgery: Present: supple, trachea midline. Absent: lymphadenopathy - Respiratory Respiratory exam: Present: CTAB. Absent: accessory muscle use, rales, rhonchi, wheezes - Cardiovascular Cardiovascular exam: Present: RRR, +S1, +S2. Absent: diastolic murmur, gallop, rubs, systolic murmur - GI/Abdominal GI/Abdominal exam: Present: normal bowel sounds, soft, no peritoneal signs. Absent: distended, tenderness - Extremities Exam Extremities exam: Present: warm, radial pulses palpable and symmetrical. Absent : calf tenderness, cyanotic, pedal edema - Neurological Exam Neurological exam: Present: CN II-XII intact, oriented X3, no focal deficits. Absent: pronater drift, facial droop, speech deficit - Skin Skin exam: Present: dry, intact Internal Medicine: Result - Labs CBC & Chem 7: 01/29/18 03:21 01/29/18 03:21 Labs: Short CBC 01/29/18 Range/Units 03:21 WBC 7.7 (4.3-11.1) K/mcL Hgb 14.4 (12.9-16.9) g/dL Hct 39.7 (37.5-50.1) % Plt Count 53 L (140-400) K/mcL Neutrophils # 4.9 (1.6-8.9) K/mcL BMP 01/29/18 03:21 Sodium 134 L Potassium 4.0 Chloride 104 Carbon Dioxide 25 BUN 24 H Creatinine 0.85 Glucose 142 H Calcium 9.2 Liver Function 01/29/18 Range/Units 03:21 Total Bilirubin 2.9 H (0.3-1.0) mg/dL AST 37 (13-39) Units/L ALT 34 (7-52) Units/L Alkaline Phosphatase 84 (34-104) Units/L Albumin 3.5 (3.5-5.7) g/dL - ABG Interpretation ABG results: PT/INR, D-dimer PT 13.8 Seconds (9.4-12.1) H 01/26/18 11:39 - VTE Documentation of Mechanical Device: Intermittent pneumatic compression device Consult Discharge Plan - Plan Referrals: Shannon,Bruce Fuchs MD [Primary Care Provider] - (Patient is to call Family to make a follow up hospital appointment. Thank you)
[2018-01-29] MEDS ORDERED: Insulin DETEMIR 100 UNIT/ML X5UNITS SQ SCH ×2 (14:30→21:00)
[2018-01-29] MEDS: Cyanocobalamin (B-12) 1,000 MCG TABLET PO SCH (20:47)
[2018-01-29] MEDS: Multivit/Ca/Min/Fe/FA 1 TAB TABLET PO SCH (20:47)
[2018-01-29] MEDS: Cholecalciferol (D-3) 1,000 UNIT TABLET PO SCH (20:49)
[2018-01-30 03:24] LABS: Basophils % 0.5 %; Eosinophils # 0.2 K/mcL (0.0-0.6); Eosinophils % 2.8 %; Hematocrit 42.3 % (37.5-50.1); Hemoglobin 14.5 g/dL (12.9-16.9); Immature Granulocytes % 0.7 % (0-4); Lymphocytes # 1.7 K/mcL (0.6-4.6); Lymphocytes % 22.7 %; Mean Corpuscular HGB Conc 34.3 g/dL (31.6-35.5); Mean Corpuscular Hemoglobin 31.9 pg (28.0-33.3); Mean Corpuscular Volume 93.2 fL (83.0-100.0); Mean Platelet Volume 11.4 fL (9.4-12.4); Monocytes # 0.8 K/mcL (0.0-1.3); Monocytes % 10.7 %; Neutrophils # 4.7 K/mcL (1.6-8.9); Platelet Count 53 K/mcL (140-400); Red Blood Count 4.54 M/mcL (4.19-5.50); Red Cell Distribution Width 14.3 % (11.5-14.5); Segmented Neutrophils % 62.6 %
[2018-01-30 03:40] LABS: BUN/Creatinine Ratio 28 (6-26); Blood Urea Nitrogen 29 mg/dL (8-23); Calcium 9.3 mg/dL (8.6-10.3); Carbon Dioxide 25 mEq/L (23-29); Chloride 105 mEq/L (98-107); Glucose 164 mg/dL (70-105); Osmolality,Calculated 293 (280-300); Potassium 3.9 mEq/L (3.5-5.1); Sodium 137 mEq/L (136-145); eGFR For African Americans > 60 (> 60); eGFR For Non-African Americans > 60 (> 60)
--- NOTE | 2018-01-30 05:42 | Electrocardiograph Report ---
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
[2018-01-30] MEDS: Aspirin 81 MG TAB.CHEW PO SCH (08:51)
[2018-01-30] MEDS: Ranolazine 500 MG TAB.ER.12H PO SCH (08:51)
[2018-01-30] MEDS: Insulin LISPRO 300 UNITS/3 ML VIAL SQ SCH ×2 (08:52→11:48)
--- NOTE | 2018-01-30 08:52 | Cardiology Progress Note ---
Date of Encounter: 01/30/18 Time of Encounter: 08:50 Assessment and Plan (1) NSTEMI (non-ST elevated myocardial infarction) Current Visit: Yes Status: Acute Peak troponin 4.65, downtrending to 3.3. Has not required nitro gtt in >24 hours. Pt currently chest pain free. Reports single episode of chest pain this AM at rest that was right sided and achy--lasted 15-20 minutes and spontaneously resolved. Reports this pain was different than the chest pain he had been having. Ambulated to bathroom and back, ambulated approximately 250ft in the hallway without chest pain. Denies dyspnea. Echo EF preserved 55%. Basal inferior wall hypokinetic. VSD noted, per pt known since 2004. Given pt's thrombocytopenia with PLT often <50 requiring transfusion, he is high risk for LHC and PCI. Since EF is preserved and he was able to ambulate without exertional chest pain , recommend continued medical management. Not a candidate for cardiac rehab. Continue ASA, Statin, BB, Imdur, Ranexa. Not on DAPT due to his thrombocytopenia. Cardiology signing off. Reconsult PRN. Will coordinate outpt follow-up in 1 week. (2) VSD (ventricular septal defect) Current Visit: Yes Status: Acute Appearance of VSD noted on echo. Per pt, known since 2004. No intervention. (3) Thrombocytopenia Current Visit: Yes Status: Acute Platelet transfusion on admission, discussed with hematology. Patient would need close monitoring of platelets as outpatient with possible transfusions if proceeding with PCI/stent. Medical management of NSTEMI. Discussion w patient/family: The assessment and plan as outlined above was discussed with the patient and/or family members who expressed understanding and agreement. All questions were answered. Thank you for involving us in the care of your patient. Please call with any questions. I will discuss all the above with Dr. Amaro and make changes as necessary. Subjective Principal diagnosis: NSTEMI Interval history: Pt currently chest pain free. No nitro gtt was needed overnight. Reports single episode of chest pain this AM at rest that was right sided and achy--lasted 15- 20 minutes and spontaneously resolved. Reports this pain was different than the chest pain he had been having. Ambulated to bathroom and back, ambulated approximately 250ft in the hallway without chest pain. Denies dyspnea. Objective Vital Signs, Last 4 Hours Temp Pulse Resp BP Pulse Ox 01/30/18 07:06 98.1 F 100 18 127/87 95 Vital Signs Temp Pulse Resp BP Pulse Ox 01/30/18 07:06 98.1 F 100 18 127/87 95 01/30/18 03:23 98.0 F 70 19 124/75 93 01/29/18 23:18 97.6 F 84 18 109/76 90 01/29/18 18:29 98.4 F 84 17 112/72 95 01/29/18 17:05 97.9 F 81 20 116/81 93 01/29/18 12:05 98.8 F 74 19 98/64 94 Intake and Output 01/29/18 01/30/18 01/30/18 23:59 07:59 15:59 Intake Total 60 / 60 Balance 60 / 60 Intake: Oral 60 / 60 Other: # Urine Diapers 1 1 Blood Glucose* 216 143 General: Conversant, No Apparent Distress HEENT: Atraumatic, Normocephaly, Mucus Membranes Moist Neck: No JVD, Normal carotid pulses Cardiac: Reg Rate and Rhythm, Normal S1 and S2, No Murmur Lungs: Normal Breath Sounds, No Wheeze, Rales, Rhonchi Neuro: Alert and responsive, No focal deficits noted Abdomen: Soft, Non-Tender Skin: No rashes noted on visualized skin Musculoskeletal: No Chest Wall Tenderness Extremities: No Clubbing, No Cyanosis, No Edema, Normal Pulses Results 01/30/18 02:34 01/30/18 02:34 Lab Results 01/30/18 01/30/18 02:34 02:34 WBC 7.5 Hgb 14.5 Hct 42.3 Plt Count 53 L Sodium 137 Potassium 3.9 Chloride 105 Carbon Dioxide 25 BUN 29 H Creatinine 1.05 Glucose 164 H Calcium 9.3 Short CBC 01/30/18 Range/Units 02:34 WBC 7.5 (4.3-11.1) K/mcL Hgb 14.5 (12.9-16.9) g/dL Hct 42.3 (37.5-50.1) % Plt Count 53 L (140-400) K/mcL Neutrophils # 4.7 (1.6-8.9) K/mcL BMP 01/30/18 Range/Units 02:34 Sodium 137 (136-145) mEq/L Potassium 3.9 (3.5-5.1) mEq/L Chloride 105 (98-107) mEq/L Carbon Dioxide 25 (23-29) mEq/L BUN 29 H (8-23) mg/dL Creatinine 1.05 (0.70-1.30) mg/dL Glucose 164 H (70-105) mg/dL Calcium 9.3 (8.6-10.3) mg/dL Active Medications Aspirin (Aspirin) 81 mg PO DAILY [facility] Stop: 07/29/18 09:01 Last Admin: 01/29/18 08:32 Dose: 81 mg Atorvastatin Calcium (Lipitor) 40 mg PO HS [facility] Stop: 07/28/18 21:01 Last Admin: 01/29/18 20:47 Dose: 40 mg Cyanocobalamin (Vitamin B12) 1,000 mcg PO [facility] Stop: 07/28/18 21:01 Last Admin: 01/29/18 20:47 Dose: 1,000 mcg Dextrose/Water (Dextrose 50% (Syg)) 25 ml IVP AD PRN PRN Reason: Hypoglycemia Stop: 07/28/18 14:28 Glucagon (Glucagen) 1 mg IM ONCE PRN PRN Reason: Hypoglycemia Stop: 07/28/18 14:28 Glucose (Gluctose) 15 gm PO ONCE PRN PRN Reason: Hypoglycemia Stop: 07/28/18 14:28 Glucose (Gluctose) 30 gm PO ONCE PRN PRN Reason: Hypoglycemia Stop: 07/28/18 14:28 Dextrose (Dextrose 5%) 1,000 mls @ 100 mls/hr IVC .Q10H PRN PRN Reason: HYPOGLYCEMIA Stop: 07/28/18 14:28 Nitroglycerin (Nitroglycerin Premix 25 Mg/250 Ml) 25 mg in 250 mls @ 24 mls/hr IVC .[id number] ARCHANA; 40 MCG/MIN PRN Reason: Protocol Stop: 07/29/18 10:53 Last Admin: 01/29/18 16:51 Dose: Not Given Insulin Detemir (Levemir) 20 unit SQ [facility] Stop: 07/31/18 21:01 Last Admin: 01/29/18 20:47 Dose: 20 unit Insulin Human Lispro (Humalog) 0 units SQ TIDAC [facility] PRN Reason: Protocol Stop: 07/28/18 16:31 Last Admin: 01/29/18 17:20 Dose: 2 units Insulin Human Lispro (Humalog) 0 units SQ [facility] PRN Reason: Protocol Stop: 07/28/18 21:01 Last Admin: 01/29/18 20:47 Dose: 2 units Isosorbide Mononitrate (Imdur) 120 mg PO DAILY [facility] Stop: 07/31/18 10:16 Levothyroxine Sodium (Synthroid) 112 mcg PO 2000 [facility] Stop: 07/28/18 20:01 Last Admin: 01/29/18 20:46 Dose: 112 mcg Metoprolol Tartrate (Lopressor) 12.5 mg PO BID [facility] Stop: 07/29/18 21:01 Last Admin: 01/29/18 20:46 Dose: 12.5 mg Multivitamins/Calcium (Thera M Plus) 1 tab PO [facility] Stop: 07/28/18 21:01 Last Admin: 01/29/18 20:47 Dose: 1 tab Naloxone HCl (Narcan) 0.4 mg IVP Q2MIN PRN PRN Reason: SEE COMMENTS Stop: 07/28/18 14:07 Oxybutynin Chloride (Ditropan) 5 mg PO BID [facility] Stop: 07/29/18 09:01 Last Admin: 01/29/18 20:49 Dose: 5 mg Polyethylene Glycol (Miralax) 17 gm PO QAM PRN PRN Reason: Constipation Stop: 07/28/18 14:25 Ranolazine (Ranexa) 1,000 mg PO BID [facility] Stop: 07/31/18 07:21 Last Admin: 01/29/18 20:46 Dose: 1,000 mg Vitamin D (Vitamin D) 1,000 unit PO HS [facility] Stop: 07/28/18 21:01 Last Admin: 01/29/18 20:49 Dose: 1,000 unit - Imaging and Cardiology Echo: report reviewed - EKG Interpretation EKG results cardiology: other (12 hr tele AVG HR 76, SR, no significant pauses or arrhythmias noted.) - VTE Documentation of Mechanical Device: Intermittent pneumatic compression device Consult Discharge Plan - Plan Referrals: Shiva,Bruce Fuchs MD [Primary Care Provider] - (Patient is to call Family to make a follow up hospital appointment. Thank you)
[2018-01-30 11:21] VITALS: BP 101/65
--- NOTE | 2018-01-30 11:37 | Discharge Summary ---
- NOTES TO OUTPATIENT PROVIDER Notes to Outpatient Provider: Follow-up with primary care physician and cardiology within the next 7 days, start Ranexa, Imdur, aspirin, metoprolol, continue cholesterol medication. Date of Encounter: 01/30/18 Time of Encounter: 11:35 - Discharge Diagnosis (1) NSTEMI (non-ST elevated myocardial infarction) Priority: Primary Status: Acute Assessment and Plan: Non-STEMI (2) Thrombocytopenia Priority: Secondary Status: Acute Assessment and Plan: Acute on chronic thrombocytopenia w/platelets of 45. Pt on admission. followed by Dr. Hough as outpatient Hematology oncology consulted, recommended transfusion to bring platelet level greater than 50 for LHC/heparin use. 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 Pt. reports still receiving treatments and sees Dr. Hough. (5) HLD (hyperlipidemia) Priority: Secondary Status: Chronic Qualifiers: Hyperlipidemia type: pure hypercholesterolemia Qualified Code(s): E78.00 - Pure hypercholesterolemia, unspecified; E78.0 - Pure hypercholesterolemia (6) Thyroid disease Priority: Primary Status: Chronic Assessment and Plan: Hypothyroidism . Continue pts. Synthroid. (7) Previous inferior myocardial infarction older than 8 weeks Priority: Secondary Status: Resolved Assessment and Plan: Hx of previous IN in 2004 with no stents but CABG with double bypass in maker. (8) Aortic aneurysm, abdominal Priority: Secondary Status: Chronic Assessment and Plan: Hx of AAA. Stable currently. Qualifiers: Presence of rupture: without rupture Qualified Code(s): I71.4 - Abdominal aortic aneurysm, without rupture Hospital course: Mr. Thomson is a 87 year old male with 2 vsl CABG 2004, skin cancer, diabetes type 2 insulin-dependent, hypertension, hyperlipidemia, hypothyroidism, chronic kidney disease of stage III, chronic thrombocytopenia plt 40s, BL LE aneurysms presented with waxing and waning chest discomfort at worst 8/10 , described as pressure. Not associated with dyspnea, nausea or diaphoresis. History of chronic thrombocytopenia followed by hematology with plt counts in the 40s and instructed not to be on aspirin previously. Discussed with Hematology (Toni Hough), that was acceptable for aspirin but required platelet transfused to get plt count above 50 before any invasive procedure. Highest troponin 4.65, trended down to 3.33 Heparin drip was not started due to thrombocytopenia Nitro drip was discontinued per Cardiology. Platelet transfusion was recommended by Oncology ( signed off) to increase platelets >50 for possible LHC . Cardiac catheterization was not recommended at this time Cardiology will follow up as outpatient Echocardiogram showed EF 55% with mild diastolic dysfunction Was monitored over the weekend, CP subsided. Cardiology signed off and recommended to Continue ASA, Statin, BB, Imdur, Ranexa. Not on DAPT due to thrombocytopenia. Will coordinate outpt follow-up in 1 week. - Time Spent with Patient Total time spent providing and/or coordinating discharge services: Greater than 30 minutes (40 min) - Discharge Medications Prescriptions: Aspirin 81 mg PO DAILY #30 tab.chew Isosorbide MONOnitrate (24 HR) [Imdur] 120 mg PO DAILY #30 tab.er.24h Metoprolol [Lopressor] 12.5 mg PO BID #60 tablet Ranolazine [Ranexa] 1,000 mg PO BID #60 tab.er.12h Home Medications: Cholecalciferol (Vitamin D3) [Vitamin D3] 1,000 unit PO HS 12/05/15 [History] Cyanocobalamin (Vitamin B-12) [Vitamin B12] 1,000 mcg PO HS 12/05/15 [History] Levothyroxine [Synthroid] 112 mcg PO HS 12/05/15 [History] Multivitamin [Multivitamins] 1 tab PO HS 12/05/15 [History] Dapagliflozin Propanediol [Farxiga] 5 mg PO HS 01/11/17 [History] GlipiZIDE [Glipizide ER] 10 mg PO BID 05/11/17 [History] Oxybutynin Chloride [Ditropan Xl] 10 mg PO HS 05/11/17 [History] Atorvastatin [Lipitor] 40 mg PO HS 10/31/17 [History] Polyethylene Glycol 3350 [MiraLAX] 17 gm PO QAM PRN #1 bottle 10/31/17 [Rx] Insulin DETEMIR [Levemir] 40 unit SQ HS 01/26/18 [History] metFORMIN [Glucophage] 500 mg PO BIDWM 01/26/18 [History] Aspirin 81 mg PO DAILY #30 tab.chew 01/30/18 [Rx] Isosorbide MONOnitrate (24 HR) [Imdur] 120 mg PO DAILY #30 tab.er.24h 01/30/18 [ Rx] Metoprolol [Lopressor] 12.5 mg PO BID #60 tablet 01/30/18 [Rx] Ranolazine [Ranexa] 1,000 mg PO BID #60 tab.er.12h 01/30/18 [Rx] Allergies/Adverse Reactions: 3 Allergy/AdvReac Type Severity Reaction Status Date / Time acetaminophen Allergy Difficulty Verified 01/26/18 14:11 [From Darvocet-N] Breathing propoxyphene Allergy Difficulty Verified 01/26/18 14:11 [From Darvocet-N] Breathing Date of admission: 01/29/18 20:26 Primary care physician: Bruce Shannon MD - Constitutional Vitals: Temp Pulse Resp BP Pulse Ox 97.9 F 65 18 101/65 96 01/30/18 11:14 01/30/18 11:14 01/30/18 11:14 01/30/18 11:14 01/30/18 11:14 General appearance: Present: cooperative, A&O X 3, pleasant, no acute distress, answers questions appropriately - Head Head exam: Present: atraumatic, normocephalic - Eye Eye exam: Present: PERRL, conjuntiva pink, sclera anicteric Pupils: Present: PERRL - Neck Neck exam general surgery: Present: supple, trachea midline. Absent: lymphadenopathy - Respiratory Respiratory exam: Present: CTAB. Absent: accessory muscle use, rales, rhonchi, wheezes - Cardiovascular Cardiovascular exam: Present: RRR, +S1, +S2. Absent: diastolic murmur, gallop, rubs, systolic murmur - GI/Abdominal GI/Abdominal exam: Present: normal bowel sounds, soft, no peritoneal signs. Absent: distended, tenderness - Extremities Exam Extremities exam: Present: warm, radial pulses palpable and symmetrical. Absent : calf tenderness, cyanotic, pedal edema - Neurological Exam Neurological exam: Present: CN II-XII intact, oriented X3, no focal deficits. Absent: pronater drift, facial droop, speech deficit - Skin Skin exam: Present: dry, intact - Patient Status Disposition: Home Health Service Condition: Fair Overall status at discharge: patient is progressing back to baseline - Discharge Instructions Follow Up With: Bruce Shannon MD [Primary Care Provider] - (Patient is to call Family to make a follow up hospital appointment. Thank you) - Diet and Activity Activity: increase activity as tolerated Diet: diabetic diet - VTE Documentation of Mechanical Device: Intermittent pneumatic compression device
[2018-01-30] MEDS: Nitroglycerin 25 MG/250 ML INFUS..BTL IVC SCH ×2 (11:48→11:53)
--- NOTE | 2018-01-30 12:04 | Physician Discharge Referral ---
Home Health/Hosp Referral Info Transfer to: Home Health Provider in Charge Post Discharge: PCP - Diagnosis (1) NSTEMI (non-ST elevated myocardial infarction) Status: Acute (2) Thrombocytopenia Status: Acute (3) Type 2 diabetes mellitus Status: Chronic (4) Skin cancer Status: Chronic (5) HLD (hyperlipidemia) Status: Chronic (6) Thyroid disease Status: Chronic (7) Previous inferior myocardial infarction older than 8 weeks Status: Resolved (8) Aortic aneurysm, abdominal Status: Chronic - Respiratory Orders Smoking Cessation: Smoking cessation has been advised. For more information, call the [place] Tobacco Quit Line at 0-656-JRAF-NOW. - Diet/Nutrition Diet/Nutrition Orders: No Concentrated Sweets - Services Needed Following services are medically necessary services: Home Health Aide, Physical Therapy, Occupational Therapy Home Care Orders: Follow-up with primary care physician and cardiology within the next 7 days, start Ranexa, Imdur, aspirin, metoprolol, continue cholesterol medication. - Transfer Medications Prescriptions: Aspirin 81 mg PO DAILY #30 tab.chew Isosorbide MONOnitrate (24 HR) [Imdur] 120 mg PO DAILY #30 tab.er.24h Metoprolol [Lopressor] 12.5 mg PO BID #60 tablet Ranolazine [Ranexa] 1,000 mg PO BID #60 tab.er.12h Home Medications: Cholecalciferol (Vitamin D3) [Vitamin D3] 1,000 unit PO HS 12/05/15 [History] Cyanocobalamin (Vitamin B-12) [Vitamin B12] 1,000 mcg PO HS 12/05/15 [History] Levothyroxine [Synthroid] 112 mcg PO HS 12/05/15 [History] Multivitamin [Multivitamins] 1 tab PO HS 12/05/15 [History] Dapagliflozin Propanediol [Farxiga] 5 mg PO HS 01/11/17 [History] GlipiZIDE [Glipizide ER] 10 mg PO BID 05/11/17 [History] Oxybutynin Chloride [Ditropan Xl] 10 mg PO HS 05/11/17 [History] Atorvastatin [Lipitor] 40 mg PO HS 10/31/17 [History] Polyethylene Glycol 3350 [MiraLAX] 17 gm PO QAM PRN #1 bottle 10/31/17 [Rx] Insulin DETEMIR [Levemir] 40 unit SQ HS 01/26/18 [History] metFORMIN [Glucophage] 500 mg PO BIDWM 01/26/18 [History] Aspirin 81 mg PO DAILY #30 tab.chew 01/30/18 [Rx] Isosorbide MONOnitrate (24 HR) [Imdur] 120 mg PO DAILY #30 tab.er.24h 01/30/18 [ Rx] Metoprolol [Lopressor] 12.5 mg PO BID #60 tablet 01/30/18 [Rx] Ranolazine [Ranexa] 1,000 mg PO BID #60 tab.er.12h 01/30/18 [Rx] Allergies/Adverse Reactions: 3 Allergy/AdvReac Type Severity Reaction Status Date / Time acetaminophen Allergy Difficulty Verified 01/26/18 14:11 [From Darvocet-N] Breathing propoxyphene Allergy Difficulty Verified 01/26/18 14:11 [From Darvocet-N] Breathing Certification: Further, I certify that my clinical findings support that this patient is homebound (i.e. absences from home require considerable and taxing effort and are for medical reasons or gnosticism services or infrequently or short duration when for other reasons) because: Homebound Reason: Patient requires assistance of a person or device to safely leave home Attestation: My signature below is to certify that this patient is under my care and that I, or nurse practitioner, or a physician's clinical medical assistant working with me, has a face-to -face encounter with this patient.
== END 2018-01-30 13:52 | disposition home health service (06) | DRG 281 ==
LOC: 3BNU 11:07 → EMEROO 11:07 → 3BNU 14:19 → 2NNU 01-27 02:32
PROVIDERS: ADMIT Internal Medicine; ATTEND Hospitalist

== ENCOUNTER 2019-03-01 10:22 | Inpatient (IN) ==
--- NOTE | 2019-02-28 15:03 | Anesthesia Evaluation PreOp ---
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 Rest of CBC unremarkable He had a bone marrow biopsy through Dr. Blas in 2010 which was negative for MDS.) Anesthesia History: No Prior Anesthetic Complications, Past Anesthesia (aorta bifem bpg, CABG, teri,prostate sx, endo CTR) Alcohol Use: none Drug use: none Medications and Allergies Cholecalciferol (Vitamin D3) [Vitamin D3] 1,000 unit PO HS 12/05/15 [History] Cyanocobalamin (Vitamin B-12) [Vitamin B12] 1,000 mcg PO HS 12/05/15 [History] Levothyroxine [Synthroid] 112 mcg PO HS 12/05/15 [History] Multivitamin [Multivitamins] 1 tab PO HS 12/05/15 [History] Oxybutynin Chloride [Ditropan Xl] 10 mg PO HS 05/11/17 [History] Atorvastatin [Lipitor] 40 mg PO HS 10/31/17 [History] Insulin DETEMIR [Levemir] 40 unit SQ QPM 01/26/18 [History] metFORMIN [Glucophage] 500 mg PO BIDWM 01/26/18 [History] Alogliptin Benzoate [Alogliptin] 12.5 mg PO QPM 03/01/19 [History] Aspirin [Lo-Dose Aspirin EC] 81 mg PO Q48H 03/01/19 [History] GlipiZIDE XL (24 HR) [Glucotrol XL] 10 mg PO DAILY 03/01/19 [History] Isosorbide MONOnitrate [Isosorbide Mononitrate ER] 30 mg PO QPM 03/01/19 [History] Nitroglycerin [Nitrostat] 0.4 mg SL Q5MIN PRN MDD X3 DOSES CALL 911 03/01/19 [History] Allergy/AdvReac Type Severity Reaction Status Date / Time acetaminophen Allergy Difficulty Verified 11/29/18 11:06 [From Darvocet-N] Breathing propoxyphene Allergy Difficulty Verified 11/29/18 11:06 [From Darvocet-N] Breathing - Meds/Allergy Pre-op Review Medications Reviewed: Yes Allergies Reviewed: Yes Beta Blockers on Current Med List: Yes If Beta Blockers taken, Date/Time (Last Dose taken): 6-12 at 2100hrs Anesthesia Results - Labs Laboratory Tests 02/23/19 02/23/19 02/23/19 07:43 07:43 07:43 Hgb 13.9 Hct 42.0 Plt Count 40 L Immature Plt Fraction 11.0 H PT 14.0 H INR 1.2 APTT 33.3 Sodium 139 Potassium 4.1 BUN 24 H Creatinine 1.17 - Imaging Additional studies: stress test: Impression: Perfusion imaging was negative for ischemia. Perfusion imaging was positive for infarct. Pharmacologic stress ECG is negative for ischemia at level of heart rate achieved. Occasional PACs noted during testing. Infrequent PVCs noted during testing. Gated EF = 44%. The left ventricle is dilated. CTA: FINDINGS: Vasculature: Severe diffuse atherosclerosis in the aorta. Postoperative changes of aortobifemoral bypass. The [place] distal aorta is mildly ectatic, measuring up to 2.7 cm. The bypass graft is patent. Minimal flow in the right internal iliac system. Well-developed collaterals feed the left internal iliac system with retrograde flow then entering the [place] left external iliac artery which is patent. There is aneurysmal dilation at the [place] left iliac bifurcation, measuring up to 2.4 cm. The left femoral anastomosis is patulous, measuring up to 2.3 cm. Severe diffuse atherosclerosis of the superficial femoral arteries without focal stenosis. Aneurysmal dilation of the proximal left popliteal artery measures 2.4 x 2.6 cm in the axial plane with more distal ectasia. Aneurysmal dilation of the proximal/mid right popliteal artery measures up to 1.8 cm. The infrapopliteal arteries are not opacified, due to contrast bolus timing. There is diffuse atherosclerosis in the calf arteries. The superior mesenteric, celiac, and renal arteries are patent. Remainder of exam: Trace left pleural effusion. Borderline cardiomegaly. No acute abnormality of the intra-abdominal organs. No suspicious renal lesion, with subcentimeter hypodensities too small to characterize. Wall calcifications in a left renal cyst are stable since at least 2009. The ureters are nondilated. There is diffuse bladder wall thickening with increased trabeculations, increased from prior exams and most likely related to chronic bladder outlet obstruction.. Possible postoperative changes within the prostate. Mild diverticulosis. No obstruction. No lymphadenopathy. No free fluid or free air. Diffuse subcutaneous edema in the calves bilaterally. CT/CT angio aorta w con runoff IMPRESSION: 1. Widely patent aortobifemoral bypass graft. The aortic portion of the bypass graft measures up to 3.2 cm. The remaining [place] infrarenal aorta is not aneurysmal. 2. Stable aneurysmal dilation at the [place] left iliac bifurcation, measuring up to 2.4 cm. Retrograde flow from the internal iliac artery perfuses the [place] left external iliac artery. 3. Unchanged patulous distal anastomosis of the bypass graft at the level of the left common femoral artery, measuring 2.4 cm. 4. Aneurysmal dilation of the bilateral proximal popliteal arteries, measuring 2.4 x 2.6 cm on the left and 1.8 cm on the right. 5. The infrapopliteal arteries are not opacified, which is related to contrast bolus timing. Diffuse atherosclerotic disease is present in the calf arteries. 6. Findings in the bladder suggest chronic bladder outlet obstruction. 7. Trace left pleural effusion. Anesthesia Exam Selected Entries 03/01/19 11:18 Temperature 97.9 F Pulse Rate 92 Respiratory Rate 18 Blood Pressure 116/77 O2 Sat by Pulse Oximetry 94 Weight: 99kg BMI 30 NPO (# of Hours): 8 - HEENT Pupil (Motor): EOMI Mallampati: II Teeth: Missing, Poor dentition Denture Type: Upper: Complete Oral Opening: Greater than 3 - HIP HOP DANCER LOC: Oriented HIP HOP DANCER Motor: Normal RUE, Normal LUE, Normal RLE, Normal LLE, Normal Face HIP HOP DANCER Sensory: Normal: RUE, LUE, RLE, LLE, Face - Cardiac Rhythm: Regular Murmur: None - Pulmonary Breath Sounds: bilateral Clear Respiratory Effort: Symmetrical Anesthesia Assess/Plan ASA Score: 3 Level of consciousness: Cooperative, Oriented Anesthetic Plan: General Monitoring Plan: Standard Monitors, A-Line Recovery Plan: PACU (agrees to GA)
[~2019-03-01 10:22] MED LIST: Vancomycin 1,000 MG, Sodium Chloride IRRigation 1,000 ML IR ONE
[2019-03-01] MEDS ORDERED: CeFAZolin Syr 2,000MG/20 ML 2,000 MG/20 ML SYRINGE IVPB ONE (11:06)
[2019-03-01] MEDS ORDERED: Ringers Solution, Lactated 1,000 ML IVC SCH ×2 (11:15→13:45)
[2019-03-01] MEDS ORDERED: *HR* OxyCODONE Immed Rel 5 MG TABLET PO PRN ×2 (13:31→21:27)
[2019-03-01] MEDS ORDERED: traMADol 50 MG TABLET PO PRN (13:31)
--- NOTE | 2019-03-01 14:14 | History & Physical Report ---
Date of Encounter: 03/01/19 Time of Encounter: 14:00 24 Hour HP Update - Instructions Instructions: If the History and Physical is less than 30 days old and was completed prior to A.M. admission and or procedure and has NOT been updated on calendar day of procedure please complete this update prior to performing procedure. - Update Patient reports changes in Medical Condition: No Changes in examination, assessment, or condition: No Changes in Medication: No Preop tests/diagnostics Reviewed: Yes Surgery Remains Indicated: Yes Consent for Planned Operative Procedure(s) Verified: Yes - Pre-Operative Checklist Preoperative Checklist Indicated: Yes Prophylactic Antibiotic Ordered: Yes (vancomycin due to risk of MRSA) Home Medications Include Beta Bre: No Beta Bre Taken Today (Day of Surgery): No Beta Bre Taken Yesterday (Day Prior to Surgery): No Is VTE Prophylaxis Indicated?: Yes
[2019-03-01] MEDS ORDERED: *HR* Midazolam HCl 2 MG/2 ML VIAL ONE (14:33)
[2019-03-01] MEDS ORDERED: *HR* Propofol 200 MG/20 ML VIAL IVP ONE (14:33)
[2019-03-01] MEDS ORDERED: *HR* FentaNYL (PF) 100 MCG/2 ML VIAL ONE ×3 (14:33→16:45)
[2019-03-01] MEDS ORDERED: Lidocaine -MPF 2% 2 ML VIAL ONE (14:34)
[2019-03-01] MEDS ORDERED: *HR* Succinylcholine 200 MG/10 ML VIAL IVP ONE (14:35)
[2019-03-01] MEDS ORDERED: Heparin 1,000 UNITS/500 mL 1,000 ML ONE (14:36)
[2019-03-01] MEDS ORDERED: Vancomycin 1,000 MG VIAL ONE ×2 (14:36→14:38)
[2019-03-01] MEDS ORDERED: Heparin 1,000 UNITS/500 mL 500 ML ONE (15:00)
[2019-03-01] MEDS ORDERED: EPHEDrine 50 MG/ML VIAL ONE (15:39)
--- NOTE | 2019-03-01 15:48 | Event Note ---
Date of Encounter: 03/01/19 Time of Encounter: 15:47 I was asked to eval the patient by Dr. Patel. The nursing staff had difficulty placing a catheter. Patient was prepped and draped in normal sterile fashion. Patient's foreskin would not retract over the head of the penis. With some difficulty I was able to place a 16-[place] catheter into the patient's meatus and into the patient's bladder. Clear urine was returned. Okay to remove catheter per primary team recommendations..
[2019-03-01] MEDS ORDERED: Dexamethasone 4 MG/ML VIAL ONE (16:00)
[2019-03-01] MEDS ORDERED: *HR* Heparin 5,000 UNIT/ML VIAL ONE ×2 (16:39→17:52)
[2019-03-01] MEDS ORDERED: Ondansetron 4 MG/2 ML VIAL ONE ×2 (18:33→21:31)
[2019-03-01] MEDS ORDERED: Protamine Sulfate 50 MG/5 ML VIAL IVP ONE (18:34)
--- NOTE | 2019-03-01 20:12 | Operative Note ---
Date of procedure: 03/01/19 Pre-op diagnosis: Left popliteal artery aneurysm Post-op diagnosis: same Procedure: Left popliteal artery aneurysm repair with left femoral artery bypass graft. Complications: None Anesthesia: GETA Surgeon: Felton Patel Was there an press operator assistant present: No Estimated blood loss (cc): 500 Specimen: None Condition: stable Disposition: PACU Procedure in Detail: Indications: The patient is an 88-year-old male with a history of hypertension, hyperlipidemia, diabetes and coronary artery disease. 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 Repair is recommended to reduce his risk of thrombosis and potential limb loss. Procedure: The patient was identified in the preoperative area. The risks, benefits, and alternatives of the procedure were discussed. All questions were answered. The patient was taken to the operating room and placed in supine position on the operating room table. After the induction of general endotracheal anesthesia, he was cleaned and draped in normal sterile fashion. A longitudinal incision was made on the right medial distal thigh sharply. Hemostasis was obtained with electrocautery. Through a process of blunt, sharp, and electrocautery dissection, the left popliteal artery aneurysm was identified. The left popliteal artery was dissected along its course into a normal caliber artery was noted proximally and distally. The distal extension of the aneurysm was noted to be in the proximal popliteal fossa. Vessel loops were passed around the proximal and distal normal caliber popliteal artery. The patient received 5000 units of heparin intravenously. Additional heparin was given throughout the case to maintain adequate anticoagulation. The popliteal artery was occluded proximally and distally. and a longitudinal arteriotomy was made in the popliteal artery aneurysm. Thrombus and plaque removed from the inside of the aneurysm. The femoral artery bypass graft was then cut to fit the aneurysmal defect. The proximal end of the graft was sutu red in place with running 5-0 Prolene. Upon completion of the anastomosis, flow was restored across anastomosis. Additional Prolene suture was required to obtain hemostasis along the medial posterior wall of the anastomosis. Thrombin and Gelfoam were used to aid in hemostasis. The distal end of the graft was sutured in place with a running 5-0 Prolene in the proximal popliteal fossa. The popliteal artery was flushed through the graft and heparin was infused into the lumen. The anastomosis was completed. Thrombin and gelfoam were used to aid in hemostasis. The aneurysm sac was partially oversewn with 3-0 Prolene suture. Polyphasic signals were noted distal to the distal anastomosis as well as at the posterior tibial artery. Wounds were irrigated with antibiotic-containing saline. Thrombin and gelfoam were used to aid in hemostasis. Platelet rich and platelet poor plasma were infused into the wounds. Meticulous hemostasis was obtained throughout the wound with electrocautery. Wounds were reapproximated with layers of 2-0 and 3-0 Vicryl. Skin was reapproximated with 3-0 Monocryl. Sterile dressing was applied. The patient was extubated and taken to recovery room in stable condition.
--- NOTE | 2019-03-01 20:21 | Anesthesia Evaluation Post Op ---
Date of Encounter: 03/01/19 Time of Encounter: 20:20 - Vital Signs Vital Signs: Vital Signs/O2 Sat/Glucose, Most Current Temp Pulse Resp BP Pulse Ox 03/01/19 20:05 116 16 115/77 94 03/01/19 19:55 118 16 127/76 94 03/01/19 19:45 97.3 F L 118 16 135/93 100 - Lungs Lungs: Clear Ascult./Percussion - Airway Airway: Non-obstructed - Cardiovascular Baseline Rhythm - Mental Status Mental Status: Alert & Oriented, Answers Appropriately - Pain Pain Scale: 0 - Nausea Vomiting Nausea Vomiting: Not Present - Hydration Hydration: Ice chips - Discharge PostOp Status: Transfer Patient to floor
[2019-03-01] MEDS: *HR* FentaNYL (PF) 100 MCG/2 ML VIAL IVP PRN ×2 (20:43→20:48)
[2019-03-01] MEDS ORDERED: Dextrose Gel 15 GM/37.5 ML TUBE PO PRN ×2 (21:27)
[2019-03-01] MEDS ORDERED: Nitroglycerin 0.4 MG TAB.SUBL SL PRN (21:27)
[2019-03-01] MEDS ORDERED: Ondansetron 4 MG/2 ML VIAL IVP PRN (21:27)
[2019-03-01] MEDS ORDERED: Naloxone 0.4 MG/ML INJ IVP PRN (21:27)
[2019-03-01] MEDS ORDERED: D5% in Water 1,000 ML IVC PRN (21:27)
[2019-03-01] MEDS ORDERED: *HR* Dextrose 50 % in Water (Syg) 50 ML SYRINGE IVP PRN (21:27)
[2019-03-01] MEDS ORDERED: Acetaminophen 325 MG TABLET PO PRN (21:27)
[2019-03-01] MEDS ORDERED: *HR* Labetalol 20 MG/4 ML SYRINGE IVP PRN (21:27)
[2019-03-01] MEDS ORDERED: 0.9 % Sodium Chloride 1,000 ML IVC SCH (21:27)
[2019-03-01] MEDS ORDERED: OXYCODONE Oral CONC 10 MG/0.5 ML ORAL.SYG SL PRN (21:27)
[2019-03-02] MEDS: OXYCODONE Oral CONC 10 MG/0.5 ML ORAL.SYG SL PRN ×2 (01:23→06:58)
[2019-03-02 01:41] LABS: Basophils % 0.2 %; Mean Corpuscular Volume 96.8 fL (83.0-100.0); Red Cell Distribution Width 14.2 % (11.5-14.5)
[2019-03-02 01:43] LABS: Eosinophils % 0.1 %; Hematocrit 33.6 % (37.5-50.1); Hemoglobin 11.3 g/dL (12.9-16.9); Immature Granulocytes % 1.3 % (0-4); Immature Platelets 6.3 % (1.1-6.1); Lymphocytes # 0.6 K/mcL (0.6-4.6); Lymphocytes % 6.1 %; Mean Corpuscular HGB Conc 33.6 g/dL (31.6-35.5); Mean Corpuscular Hemoglobin 32.6 pg (28.0-33.3); Mean Platelet Volume 11.8 fL (9.4-12.4); Monocytes # 0.3 K/mcL (0.0-1.3); Monocytes % 2.6 %; Neutrophils # 9.3 K/mcL (1.6-8.9); Red Blood Count 3.47 M/mcL (4.19-5.50); Segmented Neutrophils % 89.7 %; White Blood Count 10.4 K/mcL (4.3-11.1)
[2019-03-02 01:44] LABS: Platelet Count 58 K/mcL (140-400)
[2019-03-02 02:00] LABS: Blood Urea Nitrogen 32 mg/dL (8-23); Calcium 8.4 mg/dL (8.6-10.3); Carbon Dioxide 18 mEq/L (23-29); Chloride 106 mEq/L (98-107); Glucose 274 mg/dL (70-105); Osmolality,Calculated 299 (280-300); Potassium 5.4 mEq/L (3.5-5.1); Sodium 136 mEq/L (136-145)
[2019-03-02 02:17] LABS: BUN/Creatinine Ratio 25 (6-26); eGFR For African Americans > 60 (> 60); eGFR For Non-African Americans 52 (> 60)
[2019-03-02] MEDS ORDERED: *HR* Heparin 5,000 UNIT/ML VIAL SQ SCH (06:00)
[2019-03-02] MEDS: *HR* Heparin 5,000 UNIT/ML VIAL SQ SCH ×2 (06:58→18:06)
[2019-03-02] MEDS: *HR* Metoprolol 5 MG/5 ML VIAL IVP SCH ×5 (07:05→23:34)
--- NOTE | 2019-03-02 07:45 | Discharge Summary ---
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 His incision is healing well. He has polyphasic pedal signals. His compartments are soft. His motor and sensory exam are normal. He was seen by physical therapy and occupational therapy. Rehabilitation was recommended. The patient has been accepted AND HE WILL be discharged today. He will follow-up in vascular clinic in a few weeks for further evaluation. (2) Essential hypertension Priority: Secondary Status: Chronic (3) Cirrhosis Priority: Secondary Status: Chronic Qualifiers: Hepatic cirrhosis type: unspecified hepatic cirrhosis Ascites presence: without ascites Qualified Code(s): K74.60 - Unspecified cirrhosis of liver (4) HLD (hyperlipidemia) Priority: Secondary Status: Chronic Qualifiers: Hyperlipidemia type: pure hypercholesterolemia Qualified Code(s): E78.00 - Pure hypercholesterolemia, unspecified; E78.0 - Pure hypercholesterolemia (5) Type 2 diabetes mellitus Priority: Secondary Status: Chronic Qualifiers: Diabetes mellitus termite exterminator helper insulin use: with senior care use Diabetes mellitus complication status: with hyperglycemia Qualified Code(s): E11.65 - Type 2 diabetes mellitus with hyperglycemia; Z79.4 - terminal gauger (current) use of insulin; Z79.4 - retirement (current) use of insulin; Z79.4 - terminal gauger (current) use of insulin; Z79.4 - retirement (current) use of insulin (6) Acute blood loss anemia Priority: Primary Status: Acute Comments: The patient has acute expected postoperative blood loss anemia. He is hemodynamically stable without evidence of ongoing blood loss. (7) BPH (benign prostatic hyperplasia) Priority: Secondary Status: Chronic Comments: The patient required intraoperative consultation with urology for Silva placement due to BPH. The patient has chronic urinary retention. He will be discharged with his Silva catheter in place. Qualifiers: Lower urinary tract symptom presence: symptoms present Lower urinary tract symptom detail: urinary retention Qualified Code(s): N40.1 - Benign prostatic hyperplasia with lower urinary tract symptoms; R33.8 - Other retention of urine - Hospital Course Hospital course: Mr. Thomson is a 88 year old male with a history of hypertension, hyperlipidemia and diabetes was found have a left popliteal artery aneurysm. He was admitted and underwent an open repair of his left popliteal artery aneurysm. He tolerated the procedure well. He did have acute expected postoperative blood loss anemia. The patient is a history of BPH and urology was consulted intraoperatively for Silva catheter placement. The patient did have urinary retention and required that his Silva catheter remain indwelling. The patient was seen by physical therapy and rehabilitation was recommended. The patient. Discharged to rehabilitation. He will also follow-up with urology. - Time Spent with Patient Total time spent providing and/or coordinating discharge services: - Discharge Medications Prescriptions: Continued Levothyroxine [Synthroid] 112 mcg PO HS Multivitamin [Multivitamins] 1 tab PO HS Cyanocobalamin (Vitamin B-12) [Vitamin B12] 1,000 mcg PO HS Cholecalciferol (Vitamin D3) [Vitamin D3] 1,000 unit PO HS Oxybutynin Chloride [Ditropan Xl] 10 mg PO HS Atorvastatin [Lipitor] 40 mg PO HS Insulin DETEMIR [Levemir] 40 unit SQ QPM metFORMIN [Glucophage] 500 mg PO BIDWM Alogliptin Benzoate [Alogliptin] 12.5 mg PO QPM Aspirin [Lo-Dose Aspirin EC] 81 mg PO Q48H GlipiZIDE XL (24 HR) [Glucotrol XL] 10 mg PO DAILY Isosorbide MONOnitrate [Isosorbide Mononitrate ER] 30 mg PO QPM Nitroglycerin [Nitrostat] 0.4 mg SL Q5MIN PRN MDD X3 DOSES CALL 911 PRN Reason: Chest Pain No Action Tramadol HCl [Ultram] 50 mg PO QID PRN PRN Reason: Pain Acetaminophen [Tylenol] 325 mg PO Q6HR PRN PRN Reason: Pain Home Medications: Cholecalciferol (Vitamin D3) [Vitamin D3] 1,000 unit PO HS 12/05/15 [History] Cyanocobalamin (Vitamin B-12) [Vitamin B12] 1,000 mcg PO HS 12/05/15 [History] Levothyroxine [Synthroid] 112 mcg PO HS 12/05/15 [History] Multivitamin [Multivitamins] 1 tab PO HS 12/05/15 [History] Oxybutynin Chloride [Ditropan Xl] 10 mg PO HS 05/11/17 [History] Atorvastatin [Lipitor] 40 mg PO HS 10/31/17 [History] Insulin DETEMIR [Levemir] 40 unit SQ QPM 01/26/18 [History] metFORMIN [Glucophage] 500 mg PO BIDWM 01/26/18 [History] Alogliptin Benzoate [Alogliptin] 12.5 mg PO QPM 03/01/19 [History] Aspirin [Lo-Dose Aspirin EC] 81 mg PO Q48H 03/01/19 [History] GlipiZIDE XL (24 HR) [Glucotrol XL] 10 mg PO DAILY 03/01/19 [History] Isosorbide MONOnitrate [Isosorbide Mononitrate ER] 30 mg PO QPM 03/01/19 [History] Nitroglycerin [Nitrostat] 0.4 mg SL Q5MIN PRN MDD X3 DOSES CALL 911 03/01/19 [History] Acetaminophen [Tylenol] 325 mg PO Q6HR PRN 03/12/19 [History] Tramadol HCl [Ultram] 50 mg PO QID PRN 03/12/19 [History] Allergies/Adverse Reactions: Allergy/AdvReac Type Severity Reaction Status Date / Time acetaminophen Allergy Difficulty Verified 11/29/18 11:06 [From Darvocet-N] Breathing propoxyphene Allergy Difficulty Verified 11/29/18 11:06 [From Darvocet-N] Breathing Date of admission: 03/01/19 21:37 Primary care physician: Bruce Shannon MD Procedure(s) Performed: Left popliteal artery aneurysm repair with left popliteal artery bypass. Discharging clinician: Felton Patel Anticipated date of discharge: 03/05/19 Exam Vital Signs, Last 4 Hours Temp Pulse Resp BP Pulse Ox 03/02/19 07:15 97.8 F 93 17 110/64 94 03/02/19 07:00 93 18 98/55 95 03/02/19 06:00 99 16 95/70 95 03/02/19 05:00 94 18 96/62 95 03/02/19 04:05 102 03/02/19 04:00 97 18 103/64 98 03/02/19 03:46 97.6 F 101 18 87/62 97 General: Present: Conversant, No Apparent Distress Cardiac: Present: Reg Rate and Rhythm Lungs: Present: Normal Breath Sounds Neuro: Present: Alert and responsive, Motor nerves grossly intact, Sensory nerves grossly intact Abdomen: Present: Soft, Non-tender. Absent: Masses Vascular: Present: Normal capillary refill, Pulse, normal, Surgical incisions (incision clean, dry and intact without erythema or drainage). Absent: Cyanosis, Edema - Patient Status Disposition: Transfer Inpatient Rehab Fac Condition: Good Functional capacity at discharge: uses cane/walker Overall status at discharge: patient is progressing back to baseline - Discharge Instructions Instructions: Heart Healthy Diet (DC), Femoropopliteal Bypass (DC), Peripheral Vascular Disorders (DC) Follow Up With: Bruce Shannon MD [Primary Care Provider] - (Per Dr. Shannon's office the patient has to make his own appointment) Felton Patel MD [Partnered Physician] - 03/28/19 1:00 pm Eliel Gomez MD [Partnered Physician] - 03/14/19 9:30 am - Diet and Activity Activity: increase activity as tolerated Diet: advance to your usual diet
[2019-03-02] MEDS: Aspirin Enteric Coated 81 MG Tablet PO SCH (08:44)
[2019-03-02] MEDS: Insulin LISPRO 300 UNITS/3 ML VIAL SQ SCH ×5 (08:45→20:41)
[2019-03-02] MEDS: Multivit/Ca/Min/Fe/FA 1 TAB TABLET PO SCH ×2 (08:46→20:41)
[2019-03-02] MEDS: Cholecalciferol (D-3) 1,000 UNIT TABLET PO SCH ×2 (08:46→20:40)
[2019-03-02] MEDS: Cyanocobalamin (B-12) 1,000 MCG TABLET PO SCH ×2 (08:46→20:40)
[2019-03-02] MEDS ORDERED: Acetaminophen 325 MG TABLET PO PRN (10:04)
--- NOTE | 2019-03-02 16:36 | Vascular/[facility] Progress Note ---
Date of Encounter: 03/02/19 Time of Encounter: 12:00 - Assessment and plan (1) Aneurysm of left popliteal artery Current Visit: Yes Status: Chronic The patient is postoperative day #1 after a left popliteal artery aneurysm repair. His incision appears to be healing well. He is neurovascular intact in the left lower extremity. (2) BPH (benign prostatic hyperplasia) Current Visit: Yes Status: Chronic The patient has chronic BPH with urinary retention. He has been unable to void today. He is unable to void he will require a Silva catheter to be replaced. Qualifiers: Lower urinary tract symptom presence: symptoms present Lower urinary tract symptom detail: urinary retention Qualified Code(s): N40.1 - Benign prostatic hyperplasia with lower urinary tract symptoms; R33.8 - Other retention of urine (3) HLD (hyperlipidemia) Current Visit: No Status: Chronic Qualifiers: Hyperlipidemia type: pure hypercholesterolemia Qualified Code(s): E78.00 - Pure hypercholesterolemia, unspecified; E78.0 - Pure hypercholesterolemia (4) Type 2 diabetes mellitus Current Visit: No Status: Chronic Qualifiers: Diabetes mellitus termite exterminator helper insulin use: with termite exterminator helper use Diabetes mellitus complication status: with hyperglycemia Qualified Code(s): E11.65 - Type 2 diabetes mellitus with hyperglycemia; Z79.4 - medical terminologist (current) use of insulin; Z79.4 - medical terminologist (current) use of insulin; Z79.4 - [facility] (current) use of insulin; Z79.4 - medical terminologist (current) use of insulin (5) Thrombocytopenia Current Visit: No Status: Chronic The patient is thrombocytopenic chronically. His platelet level is greater than 50,000 today. He is no evidence of ongoing bleeding. (6) Acute blood loss anemia Current Visit: Yes Status: Acute The patient has acute expected postoperative blood loss anemia. He is hemodynamically stable without evidence of ongoing blood loss. - Subjective Interval history: The patient is alert and comfortable. He reports adequate pain control. He has not ambulated significantly yet. He was nauseated and vomiting this morning. His narcotics were discontinued. He now denies nausea or vomiting. The patient has been unable to void. He denies chest or shortness of breath. Vital Signs, Last 4 Hours Temp Pulse Resp BP 03/02/19 16:18 97.6 F 96 18 90/59 - Physical Examination General: Present: Conversant Cardiac: Present: Reg Rate and Rhythm Lungs: Present: Normal Breath Sounds Neuro: Present: Alert and responsive, No focal deficits noted Vascular: Present: Normal capillary refill, Pulse, normal (pedal signals present), Surgical incisions (Incision clean, dry and intact without erythema or drainage, no hematoma). Absent: Cyanosis, Edema Abdomen: Present: Soft, Non-tender Results 03/02/19 01:31 03/02/19 01:31 Lab Results, Last 24 hours 03/02/19 03/02/19 01:31 01:31 WBC 10.4 D Hgb 11.3 L D Hct 33.6 L Plt Count 58 L Sodium 136 Potassium 5.4 H Chloride 106 Carbon Dioxide 18 L BUN 32 H Creatinine 1.30 Glucose 274 H Calcium 8.4 L Consult Discharge Plan - Plan Referrals: Bruce Shannon MD [Primary Care Provider] - (Per Dr. Shannon's office the patient has to make his own appointment) Felton Patel MD [Partnered Physician] - 03/28/19 1:00 pm Prescriptions: Tramadol HCl [Ultram] 50 mg PO QID PRN 5 Days #20 tab PRN Reason: POSTOPERATIVE PAIN
[2019-03-02] MEDS: Isosorbide MONOnitrate (24 HR) 30 MG TAB.ER.24H PO SCH (18:05)
[2019-03-03] MEDS: *HR* Heparin 5,000 UNIT/ML VIAL SQ SCH ×2 (05:55→17:10)
[2019-03-03] MEDS: *HR* Metoprolol 5 MG/5 ML VIAL IVP SCH ×4 (05:56→23:44)
[2019-03-03] MEDS: Insulin LISPRO 300 UNITS/3 ML VIAL SQ SCH ×4 (07:47→21:15)
[2019-03-03] MEDS: *HR* HYDROcodone/Acet 5/325 mg TABLET PO PRN ×2 (07:48→15:38)
--- NOTE | 2019-03-03 14:09 | Vascular/[facility] Progress Note ---
Date of Encounter: 03/03/19 Time of Encounter: 08:00 - Assessment and plan (1) Aneurysm of left popliteal artery Current Visit: Yes Status: Chronic (2) BPH (benign prostatic hyperplasia) Current Visit: Yes Status: Chronic Qualifiers: Lower urinary tract symptom detail: urinary retention Qualified Code(s): N40.1 - Benign prostatic hyperplasia with lower urinary tract symptoms; R33.8 - Other retention of urine Discussion with patient/family: Satisfactory post op course Normal perfusion to foot. Advised patient to ambulate today with assist. T/c PT if noted to be unstable Elevate leg for edema control Pain control Will need to continue driver with leg bag upon discharge with outpatient voiding trial - Subjective Interval history: Overnight reports discomfort in the leg. Is concerned about being able to ambulate. Vital Signs, Last 4 Hours Temp Pulse Resp BP 03/03/19 11:08 98.4 F 88 18 107/53 - Physical Examination General: Present: Conversant, No Apparent Distress Cardiac: Present: Reg Rate and Rhythm Lungs: Present: Normal Breath Sounds Neuro: Present: Alert and responsive, No focal deficits noted Vascular: Present: Surgical incisions (c/d/i), Other (Left leg is warm, slightly edematous, with strong triphasic DP/Pt signals) Abdomen: Present: Soft Results 03/02/19 01:31 03/02/19 01:31 Consult Discharge Plan - Plan Referrals: Bruce Shannon MD [Primary Care Provider] - (Per Dr. Shannon's office the patient has to make his own appointment) Felton Patel MD [Partnered Physician] - 03/28/19 1:00 pm Prescriptions: Tramadol HCl [Ultram] 50 mg PO QID PRN 5 Days #20 tab PRN Reason: POSTOPERATIVE PAIN
[2019-03-03] MEDS: Isosorbide MONOnitrate (24 HR) 30 MG TAB.ER.24H PO SCH (15:38)
[2019-03-03] MEDS: traMADol 50 MG TABLET PO PRN (17:08)
[2019-03-03] MEDS: Cyanocobalamin (B-12) 1,000 MCG TABLET PO SCH (21:55)
[2019-03-03] MEDS: Multivit/Ca/Min/Fe/FA 1 TAB TABLET PO SCH (21:55)
[2019-03-03] MEDS: Aspirin Enteric Coated 81 MG Tablet PO SCH (21:56)
[2019-03-03] MEDS: Cholecalciferol (D-3) 1,000 UNIT TABLET PO SCH (21:56)
[2019-03-04] MEDS: *HR* Heparin 5,000 UNIT/ML VIAL SQ SCH ×2 (06:16→17:08)
[2019-03-04] MEDS: *HR* Metoprolol 5 MG/5 ML VIAL IVP SCH ×3 (06:16→17:08)
[2019-03-04] MEDS: traMADol 50 MG TABLET PO PRN ×2 (08:39→17:21)
[2019-03-04] MEDS: Insulin LISPRO 300 UNITS/3 ML VIAL SQ SCH ×4 (08:40→21:24)
--- NOTE | 2019-03-04 09:19 | Vascular/[facility] Progress Note ---
Date of Encounter: 03/04/19 Time of Encounter: 07:30 - Assessment and plan (1) Aneurysm of left popliteal artery Current Visit: Yes Status: Chronic Satisfactory post operative course Still with some discomfort in the leg. Plan to ambulate again today. Will order PT consult to evaluate as patient states he feels unstable on his feet and has a history of falling. (2) BPH (benign prostatic hyperplasia) Current Visit: Yes Status: Chronic Qualifiers: Lower urinary tract symptom detail: urinary retention Qualified Code(s): N40.1 - Benign prostatic hyperplasia with lower urinary tract symptoms; R33.8 - Other retention of urine - Subjective Interval history: Still with some discomfort in the leg. Did get out of bed to chair and ambulate in room. States he was hesitant to bear weight on the left leg. [place] unsteady on his feet. Will try again as patient hopes to go home. Vital Signs, Last 4 Hours Temp Pulse Resp BP Pulse Ox 03/04/19 08:58 80 03/04/19 07:00 98.0 F 94 18 122/67 91 - Physical Examination General: Present: Conversant, No Apparent Distress Cardiac: Present: Reg Rate and Rhythm Lungs: Present: Normal Breath Sounds Neuro: Present: Alert and responsive, No focal deficits noted Vascular: Present: Surgical incisions (Incisions c/d/i, mildly edematous left leg, triphasic signals PT/DP) Abdomen: Present: Soft Skin: Present: Wound/ulcer(s) Results 03/02/19 01:31 03/02/19 01:31 Consult Discharge Plan - Plan Referrals: Bruce Shannon MD [Primary Care Provider] - (Per Dr. Shannon's office the patient has to make his own appointment) Felton Patel MD [Partnered Physician] - 03/28/19 1:00 pm Prescriptions: Tramadol HCl [Ultram] 50 mg PO QID PRN 5 Days #20 tab PRN Reason: POSTOPERATIVE PAIN
[2019-03-04] MEDS: Isosorbide MONOnitrate (24 HR) 30 MG TAB.ER.24H PO SCH (17:08)
[2019-03-04] MEDS: Multivit/Ca/Min/Fe/FA 1 TAB TABLET PO SCH (21:19)
[2019-03-04] MEDS: Cholecalciferol (D-3) 1,000 UNIT TABLET PO SCH (21:19)
[2019-03-04] MEDS: Cyanocobalamin (B-12) 1,000 MCG TABLET PO SCH (21:21)
[2019-03-05] MEDS: *HR* Metoprolol 5 MG/5 ML VIAL IVP SCH ×3 (00:05→12:10)
[2019-03-05] MEDS: *HR* Heparin 5,000 UNIT/ML VIAL SQ SCH ×2 (06:00→16:34)
[2019-03-05] MEDS: traMADol 50 MG TABLET PO PRN ×2 (06:47→16:33)
[2019-03-05] MEDS: Insulin LISPRO 300 UNITS/3 ML VIAL SQ SCH ×3 (08:29→16:34)
--- NOTE | 2019-03-05 15:45 | Physician Discharge Referral ---
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 (2) BPH (benign prostatic hyperplasia) Priority: Secondary Status: Chronic (3) Diabetes Priority: Secondary Status: Chronic (4) HLD (hyperlipidemia) Priority: Secondary Status: Chronic (5) Thrombocytopenia Priority: Secondary Status: Chronic (6) Type 2 diabetes mellitus Priority: Secondary Status: Chronic Prognosis: Good Aware of Diagnosis: Patient Aware of Prognosis: Patient - Transfer Medications Prescriptions: Tramadol HCl [Ultram] 50 mg PO QID PRN 5 Days #20 tab PRN Reason: POSTOPERATIVE PAIN Home Medications: Cholecalciferol (Vitamin D3) [Vitamin D3] 1,000 unit PO HS 12/05/15 [History] Cyanocobalamin (Vitamin B-12) [Vitamin B12] 1,000 mcg PO HS 12/05/15 [History] Levothyroxine [Synthroid] 112 mcg PO HS 12/05/15 [History] Multivitamin [Multivitamins] 1 tab PO HS 12/05/15 [History] Oxybutynin Chloride [Ditropan Xl] 10 mg PO HS 05/11/17 [History] Atorvastatin [Lipitor] 40 mg PO HS 10/31/17 [History] Insulin DETEMIR [Levemir] 40 unit SQ QPM 01/26/18 [History] metFORMIN [Glucophage] 500 mg PO BIDWM 01/26/18 [History] Alogliptin Benzoate [Alogliptin] 12.5 mg PO QPM 03/01/19 [History] Aspirin [Lo-Dose Aspirin EC] 81 mg PO Q48H 03/01/19 [History] GlipiZIDE XL (24 HR) [Glucotrol XL] 10 mg PO DAILY 03/01/19 [History] Isosorbide MONOnitrate [Isosorbide Mononitrate ER] 30 mg PO QPM 03/01/19 [History] Nitroglycerin [Nitrostat] 0.4 mg SL Q5MIN PRN MDD X3 DOSES CALL 911 03/01/19 [History] Tramadol HCl [Ultram] 50 mg PO QID PRN 5 Days #20 tab 03/02/19 [Rx] Allergies/Adverse Reactions: Allergy/AdvReac Type Severity Reaction Status Date / Time acetaminophen Allergy Difficulty Verified 11/29/18 11:06 [From Darvocet-N] Breathing propoxyphene Allergy Difficulty Verified 11/29/18 11:06 [From Darvocet-N] Breathing - Respiratory Orders Smoking Cessation: Smoking cessation has been advised. For more information, call the [place] Tobacco Quit Line at 2-336-JZBX-NOW. - Ancillary Orders May use pressure relief devices daily prn, May go on SONY w/family/respon democrat w/meds at nurse discretion PRN, May have alcoholic beverages, May consult with Dentist, Surgery Consultant, Regional Facilities Manager PRN - Advance Directives Living Will: No Power of Medical Sales Consultant for Health Care: No Code Status: Full Code - Mobility Orders Ambulate (As per PT recommendations) - Rehabiliation Orders Rehab Potential: Good Rehab Orders: ROM Exercises, Evaluation for Physical Therapy, Evaluation for Occupational Therapy - Treatments Skin tear care topically daily PRN per policy, May check for fecal impaction rectally daily PRN, Fleet enema rectally every other day PRN cleansing purposes - Diet Orders No Concentrated Sweets CERTIFICATION: I certify that the transfer of the above named patient to an Extended Care Facility is necessary for the continuing treatment of the diagnosis listed. The above information is true and accurate reflection of patient's current condition. Confidential - Redisclosure prohibited without a patient's written consent.
[2019-03-05 15:48] VITALS: BP 119/67
== END 2019-03-05 17:37 | DRG 253 ==
LOC: SAMDAY 10:22 → 2NNU 21:37
PROVIDERS: ADMIT Surgery; ATTEND Surgery

== ENCOUNTER 2019-08-01 23:05 | Observation (INO) ==
[2019-08-01] MEDS ORDERED: Ondansetron 4 MG/2 ML VIAL IVP ONE (23:12)
[2019-08-01] MEDS ORDERED: *HR* Heparin 5,000 UNIT/ML VIAL IVP PRN ×2 (23:25)
[2019-08-01] MEDS ORDERED: *HR* Heparin 5,000 UNIT/ML VIAL IVP ONE (23:25)
[2019-08-01] MEDS ORDERED: *HR* Ticagrelor 90 MG TABLET ONE (23:26)
[2019-08-01] MEDS ORDERED: *HR* Heparin 5,000 UNIT/ML VIAL ONE (23:26)
[2019-08-01] MEDS ORDERED: 0.9 % Sodium Chloride 1,000 ML IVC ONE (23:27)
[2019-08-01] MEDS ORDERED: *HR* FentaNYL (PF) 100 MCG/2 ML VIAL IVP ONE (23:27)
[2019-08-01] MEDS ORDERED: Aspirin 81 MG TAB.CHEW ONE (23:27)
[2019-08-01] MEDS ORDERED: *HR* Ticagrelor 90 MG TABLET PO ONE (23:27)
[2019-08-01] MEDS ORDERED: Heparin 25,000 UNIT/250 ML D5W 25,000 UNIT/250 ML IV.SOLN IVC SCH (23:30)
[2019-08-01] MEDS ORDERED: Aspirin 81 MG TAB.CHEW PO STA (23:32)
[2019-08-02 00:12] LABS: INR 1.4; Prothrombin Time 16.4 Seconds (9.4-12.1)
[2019-08-02 00:15] LABS: Activated Partial Thrombo Time 29.5 Seconds (26.0-36.0)
[2019-08-02] MEDS ORDERED: methylPREDNISolone 125 MG/2 ML VIAL IVP ONE (00:18)
[2019-08-02] MEDS ORDERED: Azithromycin 500 MG in 0.9 % Sodium Chloride 250 ML IVPB ONE (00:18)
[2019-08-02] MEDS ORDERED: cefTRIAXone 2,000 MG in Water for inj. (sterile) 20 ML IVP ONE (00:18)
[2019-08-02 00:24] LABS: Calcium 8.8 mg/dL (8.6-10.3); Magnesium 1.8 mg/dL (1.6-2.6); Potassium 4.6 mEq/L (3.5-5.1)
[2019-08-02 00:25] LABS: Mean Corpuscular HGB Conc 31.8 g/dL (31.6-35.5); Monocytes % 11.8 %
[2019-08-02 00:26] LABS: Basophils % 0.3 %; Eosinophils # 0.1 K/mcL (0.0-0.6); Eosinophils % 1.2 %; Hematocrit 32.4 % (37.5-50.1); Hemoglobin 10.3 g/dL (12.9-16.9); Immature Granulocytes % 0.9 % (0-4); Immature Platelets 17.5 % (1.1-6.1); Lymphocytes # 0.5 K/mcL (0.6-4.6); Lymphocytes % 9.2 %; Mean Corpuscular Hemoglobin 29.9 pg (28.0-33.3); Mean Corpuscular Volume 94.2 fL (83.0-100.0); Mean Platelet Volume 13.5 fL (9.4-12.4); Monocytes # 0.7 K/mcL (0.0-1.3); Neutrophils # 4.4 K/mcL (1.6-8.9); Red Blood Count 3.44 M/mcL (4.19-5.50); Red Cell Distribution Width 14.4 % (11.5-14.5); Segmented Neutrophils % 76.6 %; White Blood Count 5.8 K/mcL (4.3-11.1)
[2019-08-02 00:28] LABS: Platelet Count 49 K/mcL (140-400)
[2019-08-02 00:29] LABS: Platelet Estimate Marked Decrease (Normal)
[2019-08-02 00:29] LABS: Troponin I 0.43 ng/mL (< 0.04)
[2019-08-02 01:31] LABS: Thyroid Stimulating Hormone 8.754 mcIU/mL (0.340-5.600)
[2019-08-02] MEDS ORDERED: Naloxone 0.4 MG/ML INJ IVP PRN (04:14)
[2019-08-02] MEDS ORDERED: Nitroglycerin 0.4 MG TAB.SUBL SL PRN (04:19)
[2019-08-02] MEDS ORDERED: *HR* Dextrose 50 % in Water (Syg) 50 ML SYRINGE IVP PRN ×2 (04:20→11:18)
[2019-08-02] MEDS ORDERED: Dextrose Gel 15 GM/37.5 ML TUBE PO PRN ×4 (04:20→11:18)
[2019-08-02] MEDS ORDERED: D5% in Water 1,000 ML IVC PRN ×2 (04:20→11:18)
[2019-08-02] MEDS ORDERED: Benzonatate 100 MG CAPSULE PO PRN (04:55)
[2019-08-02 05:04] LABS: VBG HCO3 20 mEq/L (21-27); VBG PCO2 38 mmHg (41-51); VBG PH 7.34 pH Units (7.32-7.42); VBG PO2 112 mmHg (25-50)
[2019-08-02] MEDS: Insulin LISPRO 300 UNITS/3 ML VIAL SQ SCH ×3 (06:18→17:37)
[2019-08-02] MEDS ORDERED: BENZONATATE PO SCH (09:00)
[2019-08-02 10:15] LABS: Basophils % 0.5 %; Hematocrit 30.6 % (37.5-50.1); Hemoglobin 9.5 g/dL (12.9-16.9); Immature Granulocytes % 0.5 % (0-4); Lymphocytes # 0.2 K/mcL (0.6-4.6); Lymphocytes % 11.3 %; Mean Corpuscular Volume 96.5 fL (83.0-100.0); Monocytes # 0.1 K/mcL (0.0-1.3); Monocytes % 3.6 %; Neutrophils # 1.6 K/mcL (1.6-8.9); Red Blood Count 3.17 M/mcL (4.19-5.50); Red Cell Distribution Width 14.2 % (11.5-14.5); Segmented Neutrophils % 84.1 %; White Blood Count 1.9 K/mcL (4.3-11.1)
[2019-08-02] MEDS ORDERED: 0.9 % Sodium Chloride 1,000 ML IVC SCH (10:15)
[2019-08-02] MEDS ORDERED: Sodium Bicarbonate 75 MEQ in 0.45 % Sodium Chloride 1,000 ML IVC SCH (10:15)
[2019-08-02 10:17] LABS: Platelet Count 42 K/mcL (140-400)
[2019-08-02 10:24] LABS: Calcium 8.8 mg/dL (8.6-10.3); Magnesium 1.9 mg/dL (1.6-2.6); Potassium 4.9 mEq/L (3.5-5.1)
[2019-08-02 10:44] LABS: Platelet Estimate Decreased (Normal)
[2019-08-02 10:57] LABS: Estimated Average Glucose 186 mg/dl
[2019-08-02] MEDS ORDERED: Perflutren Lipid Microsphere 1.3 ML in 0.9 % Sodium Chloride 8.7 ML IVP ONE (11:51)
[2019-08-02 11:57] LABS: Bilirubin,Urine Negative (Negative); Blood,Urine Trace (Negative); Clarity,Urine Clear (Clear); Color,Urine Yellow (Yellow); Glucose,Urine (UA) 250 mg/dL (Normal); Ketones,Urine Negative (Negative); Leukocyte Esterase,Urine Negative (Negative); Nitrite,Urine Negative (Negative); PH,Urine 5.5 pH Units (5.0-8.0); Protein,Urine >=300 mg/dL (Neg-Trace); Specific Gravity,Urine 1.026 (1.010-1.025); Urobilinogen,Urine Normal (Normal)
[2019-08-02 11:58] LABS: Bacteria,Urine None Seen per hpf (None-Few); Hyaline Casts,Urine Few per lpf (None-Few); Squamous Epithelial Cell,Urine Moderate per lpf (None-Few); WBC,Urine 0-3 per hpf (0-3)
[2019-08-02 12:06] LABS: Sodium, Urine 43.8 mEq/L
[2019-08-02 12:26] LABS: Estimated Average Glucose 192 mg/dl
[2019-08-02 12:44] LABS: Creatinine,Urine 154 mg/dL; Microalbumin,Urine > 1350 mg/L; Protein/Creatinine Ratio,Urine 2.62 mg/mg (0.00-0.20)
[2019-08-02 12:46] LABS: Adenovirus Not Detected (Not Detect); Bordetella Pertussis Not Detected (Not Detect); Chlamydophila pneumoniae Not Detected (Not Detect); Coronavirus 229E Not Detected (Not Detect); Coronavirus HKU1 Not Detected (Not Detect); Coronavirus NL63 Not Detected (Not Detect); Coronavirus OC43 Not Detected (Not Detect); Human Metapneumovirus Not Detected (Not Detect); Human Rhinovirus/Enterovirus Not Detected (Not Detect); Influenza A Subtype 2009 H1 Not Detected (Not Detect); Influenza A Untypeable Not Detected (Not Detect); Influenza B Not Detected (Not Detect); Mycoplasma pneumoniae Not Detected (Not Detect); Parainfluenza Virus 1 Not Detected (Not Detect); Parainfluenza Virus 2 Not Detected (Not Detect); Parainfluenza Virus 3 Not Detected (Not Detect); Parainfluenza Virus 4 Not Detected (Not Detect); Respiratory Syncytial Virus Not Detected (Not Detect)
[2019-08-02] MEDS ORDERED: Ipratropium/Albuterol Neb 3 ML ONE (12:57)
[2019-08-02] MEDS ORDERED: Ipratropium/Albuterol Neb 3 ML IH PRN (12:57)
[2019-08-02 17:13] VITALS: BP 105/72
[2019-08-02] MEDS ORDERED: Insulin DETEMIR 100 UNIT/ML X5UNITS SQ SCH (18:00)
[2019-08-02] MEDS ORDERED: *HR* Acetylcysteine 20% 600 MG/3 ML ORAL SYRINGE PO SCH (21:00)
[2019-08-03] MEDS ORDERED: Azithromycin 500 MG in 0.9 % Sodium Chloride 250 ML IVPB SCH (08:00)
[2019-08-03] MEDS ORDERED: cefTRIAXone 1,000 MG in Water for inj. (sterile) 10 ML IVP SCH (09:00)
== END 2019-08-02 18:18 | disposition short-term general hospital (02) ==
LOC: EMEROOARM 23:05 → ICNU 23:05
PROVIDERS: ADMIT Internal Medicine; ATTEND Internal Medicine

== ENCOUNTER 2019-09-07 14:29 | Observation (INO) ==
[2019-09-07 15:21] LABS: Basophils % 0.3 %; Immature Granulocytes % 0.3 % (0-4); White Blood Count 3.4 K/mcL (4.3-11.1)
[2019-09-07 15:23] LABS: Eosinophils # 0.2 K/mcL (0.0-0.6); Hematocrit 31.8 % (37.5-50.1); Hemoglobin 10.1 g/dL (12.9-16.9); Immature Platelets 17.4 % (1.1-6.1); Lymphocytes # 0.8 K/mcL (0.6-4.6); Lymphocytes % 22.1 %; Mean Corpuscular HGB Conc 31.8 g/dL (31.6-35.5); Mean Corpuscular Hemoglobin 27.8 pg (28.0-33.3); Mean Corpuscular Volume 87.6 fL (83.0-100.0); Monocytes # 0.3 K/mcL (0.0-1.3); Monocytes % 8.6 %; Neutrophils # 2.2 K/mcL (1.6-8.9); Red Blood Count 3.63 M/mcL (4.19-5.50); Red Cell Distribution Width 14.8 % (11.5-14.5); Segmented Neutrophils % 63.7 %
[2019-09-07 15:25] LABS: Platelet Count 39 K/mcL (140-400)
[2019-09-07 15:26] LABS: INR 1.3; Prothrombin Time 14.4 Seconds (9.4-12.1)
[2019-09-07 15:41] LABS: Alanine Aminotransferase 13 Units/L (7-52); Albumin 3.4 g/dL (3.5-5.7); Albumin/Globulin Ratio 1.1 (1.1-2.2); Alkaline Phosphatase 87 Units/L (34-104); Aspartate Amino Transferase 19 Units/L (13-39); BUN/Creatinine Ratio 16 (6-26); Bilirubin,Direct 0.3 mg/dL (0.0-0.2); Bilirubin,Total 1.3 mg/dL (0.3-1.0); Blood Urea Nitrogen 19 mg/dL (8-23); Calcium 8.9 mg/dL (8.6-10.3); Carbon Dioxide 27 mEq/L (23-29); Chloride 99 mEq/L (98-107); Glucose 389 mg/dL (70-105); Osmolality,Calculated 298 (280-300); Potassium 4.1 mEq/L (3.5-5.1); Sodium 135 mEq/L (136-145); Total Protein 6.4 g/dL (6.4-8.9); Troponin I 0.03 ng/mL (< 0.04); eGFR For African Americans > 60 (> 60); eGFR For Non-African Americans 58 (> 60)
[2019-09-07] MEDS ORDERED: Furosemide 40 MG/4 ML VIAL IVP ONE (15:43)
[2019-09-07] MEDS ORDERED: Naloxone 0.4 MG/ML INJ IVP PRN (17:13)
[2019-09-07] MEDS ORDERED: Ondansetron ODT 4 MG TAB.RAPDIS SL PRN (17:13)
[2019-09-07 17:32] LABS: Magnesium 1.8 mg/dL (1.6-2.6)
[2019-09-07] MEDS ORDERED: Dextrose Gel 15 GM/37.5 ML TUBE PO PRN (17:57)
[2019-09-07] MEDS: Insulin DETEMIR 100 UNIT/ML X5UNITS SQ SCH (19:43)
[2019-09-07] MEDS: Insulin LISPRO 300 UNITS/3 ML VIAL SQ SCH (22:57)
[2019-09-08] MEDS: Insulin LISPRO 300 UNITS/3 ML VIAL SQ SCH ×5 (00:41→21:40)
[2019-09-08 04:17] LABS: Eosinophils % 6.3 %; Immature Granulocytes % 0.3 % (0-4); Mean Corpuscular HGB Conc 31.9 g/dL (31.6-35.5); Red Cell Distribution Width 14.7 % (11.5-14.5)
[2019-09-08 04:19] LABS: Basophils % 0.6 %; Eosinophils # 0.2 K/mcL (0.0-0.6); Hematocrit 29.5 % (37.5-50.1); Hemoglobin 9.4 g/dL (12.9-16.9); Lymphocytes % 27.2 %; Mean Corpuscular Hemoglobin 28.4 pg (28.0-33.3); Mean Corpuscular Volume 89.1 fL (83.0-100.0); Monocytes # 0.4 K/mcL (0.0-1.3); Monocytes % 11.5 %; Neutrophils # 1.9 K/mcL (1.6-8.9); Red Blood Count 3.31 M/mcL (4.19-5.50); Segmented Neutrophils % 54.1 %; White Blood Count 3.5 K/mcL (4.3-11.1)
[2019-09-08 04:20] LABS: Platelet Count 42 K/mcL (140-400)
[2019-09-08 04:24] LABS: BUN/Creatinine Ratio 15 (6-26); Blood Urea Nitrogen 18 mg/dL (8-23); Calcium 8.8 mg/dL (8.6-10.3); Carbon Dioxide 29 mEq/L (23-29); Chloride 103 mEq/L (98-107); Glucose 185 mg/dL (70-105); Magnesium 1.7 mg/dL (1.6-2.6); Osmolality,Calculated 293 (280-300); Potassium 3.5 mEq/L (3.5-5.1); Sodium 138 mEq/L (136-145); eGFR For African Americans > 60 (> 60); eGFR For Non-African Americans 58 (> 60)
[2019-09-08] MEDS: Aspirin 81 MG TAB.CHEW PO SCH (08:18)
[2019-09-08] MEDS: Furosemide 40 MG/4 ML VIAL IVP SCH ×2 (08:18→17:08)
[2019-09-08] MEDS: Insulin DETEMIR 100 UNIT/ML X5UNITS SQ SCH (17:06)
[2019-09-08] MEDS: *HR* Heparin 5,000 UNIT/ML VIAL SQ SCH (17:08)
[2019-09-09] MEDS: *HR* Heparin 5,000 UNIT/ML VIAL SQ SCH ×2 (05:49→16:24)
[2019-09-09] MEDS: Insulin LISPRO 300 UNITS/3 ML VIAL SQ SCH ×4 (07:18→22:19)
[2019-09-09] MEDS: Aspirin 81 MG TAB.CHEW PO SCH (07:36)
[2019-09-09] MEDS: Furosemide 40 MG/4 ML VIAL IVP SCH (07:36)
[2019-09-09 08:56] LABS: Blood Urea Nitrogen 20 mg/dL (8-23); Calcium 9.2 mg/dL (8.6-10.3); Carbon Dioxide 29 mEq/L (23-29); Chloride 103 mEq/L (98-107); Glucose 74 mg/dL (70-105); Osmolality,Calculated 291 (280-300); Sodium 140 mEq/L (136-145)
[2019-09-09 09:34] LABS: BUN/Creatinine Ratio 15 (6-26); eGFR For African Americans > 60 (> 60); eGFR For Non-African Americans 50 (> 60)
[2019-09-09] MEDS: Insulin DETEMIR 100 UNIT/ML X5UNITS SQ SCH (16:24)
[2019-09-10] MEDS: *HR* Heparin 5,000 UNIT/ML VIAL SQ SCH (05:19)
[2019-09-10 05:25] LABS: Calcium 8.7 mg/dL (8.6-10.3); Potassium 3.9 mEq/L (3.5-5.1)
[2019-09-10] MEDS: Insulin LISPRO 300 UNITS/3 ML VIAL SQ SCH ×2 (07:19→12:00)
[2019-09-10] MEDS: Aspirin 81 MG TAB.CHEW PO SCH (07:20)
[2019-09-10] MEDS ORDERED: Metoprolol XL (24 HR) Succ 25 MG TAB.ER.24H PO SCH (09:00)
[2019-09-10 10:57] VITALS: BP 99/70
== END 2019-09-10 14:33 | disposition home health service (06) ==
LOC: 2ANU 14:29 → EMEROOARM 14:29 → 2ANU 19:46
PROVIDERS: ADMIT Internal Medicine; ATTEND Internal Medicine

== ENCOUNTER 2019-09-24 13:20 | Observation (INO) ==
[2019-09-24 14:59] LABS: Basophils % 0.3 %; Eosinophils % 2.3 %
[2019-09-24 15:01] LABS: Eosinophils # 0.1 K/mcL (0.0-0.6); Hematocrit 34.5 % (37.5-50.1); Hemoglobin 10.9 g/dL (12.9-16.9); Immature Granulocytes % 0.3 % (0-4); Immature Platelets 14.7 % (1.1-6.1); Lymphocytes # 0.8 K/mcL (0.6-4.6); Lymphocytes % 27.4 %; Mean Corpuscular HGB Conc 31.6 g/dL (31.6-35.5); Mean Corpuscular Hemoglobin 27.3 pg (28.0-33.3); Mean Corpuscular Volume 86.5 fL (83.0-100.0); Monocytes # 0.3 K/mcL (0.0-1.3); Monocytes % 8.9 %; Neutrophils # 1.8 K/mcL (1.6-8.9); Red Blood Count 3.99 M/mcL (4.19-5.50); Red Cell Distribution Width 15.1 % (11.5-14.5); Segmented Neutrophils % 60.8 %
[2019-09-24 15:03] LABS: INR 1.3; Prothrombin Time 14.2 Seconds (9.4-12.1)
[2019-09-24 15:06] LABS: Activated Partial Thrombo Time 28.6 Seconds (26.0-36.0)
[2019-09-24 15:19] LABS: Platelet Count 34 K/mcL (140-400)
[2019-09-24 15:22] LABS: Ovalocytes 1+ (Not Present); Platelet Estimate Decreased (Normal); Poikilocytosis 1+ (Not Present)
[2019-09-24 15:23] LABS: BUN/Creatinine Ratio 18 (6-26); Blood Urea Nitrogen 28 mg/dL (8-23); Calcium 8.8 mg/dL (8.6-10.3); Carbon Dioxide 26 mEq/L (23-29); Chloride 99 mEq/L (98-107); Glucose 335 mg/dL (70-105); Osmolality,Calculated 299 (280-300); Potassium 3.8 mEq/L (3.5-5.1); Sodium 135 mEq/L (136-145); Troponin I < 0.03 ng/mL (< 0.04); eGFR For African Americans 53 (> 60); eGFR For Non-African Americans 43 (> 60)
[2019-09-24] MEDS ORDERED: Piperacillin/Tazobactam 3.375 GM in 0.9 % Sodium Chloride Mini Bag 100 ML IVPB ONE (18:38)
[2019-09-24] MEDS ORDERED: Furosemide 40 MG/4 ML VIAL IVP ONE (18:45)
[2019-09-24] MEDS ORDERED: *HR* Dextrose 50 % in Water (Syg) 50 ML SYRINGE IVP PRN (19:28)
[2019-09-24] MEDS ORDERED: D5% in Water 1,000 ML IVC PRN (19:28)
[2019-09-24] MEDS ORDERED: Dextrose Gel 15 GM/37.5 ML TUBE PO PRN ×2 (19:28)
[2019-09-24 19:31] LABS: Calcium 8.8 mg/dL (8.6-10.3); Potassium 3.8 mEq/L (3.5-5.1)
[2019-09-24 20:47] LABS: Bilirubin,Urine Negative (Negative); Blood,Urine Small (Negative); Clarity,Urine Clear (Clear); Color,Urine Yellow (Yellow); Glucose,Urine (UA) 500 mg/dL (Normal); Ketones,Urine Negative (Negative); Leukocyte Esterase,Urine Negative (Negative); Nitrite,Urine Negative (Negative); PH,Urine 6.5 pH Units (5.0-8.0); Protein,Urine Trace mg/dL (Neg-Trace); Specific Gravity,Urine 1.016 (1.010-1.025); Urobilinogen,Urine Normal (Normal)
[2019-09-24 20:51] LABS: Bacteria,Urine None Seen per hpf (None-Few); Hyaline Casts,Urine None Seen per lpf (None-Few); Squamous Epithelial Cell,Urine Few per lpf (None-Few); WBC,Urine 0-3 per hpf (0-3)
[2019-09-24] MEDS ORDERED: Ipratropium/Albuterol Neb 3 ML IH PRN ×2 (21:07)
[2019-09-24] MEDS: Insulin LISPRO 300 UNITS/3 ML VIAL SQ SCH (21:46)
[2019-09-25 03:23] LABS: Basophils % 0.4 %
[2019-09-25 03:25] LABS: Eosinophils # 0.2 K/mcL (0.0-0.6); Eosinophils % 4.5 %; Hematocrit 32.1 % (37.5-50.1); Hemoglobin 10.2 g/dL (12.9-16.9); Immature Granulocytes % 0.6 % (0-4); Immature Platelets 12.4 % (1.1-6.1); Lymphocytes # 0.8 K/mcL (0.6-4.6); Lymphocytes % 17.8 %; Mean Corpuscular HGB Conc 31.8 g/dL (31.6-35.5); Mean Corpuscular Volume 84.9 fL (83.0-100.0); Monocytes # 0.5 K/mcL (0.0-1.3); Monocytes % 10.5 %; Neutrophils # 3.1 K/mcL (1.6-8.9); Red Blood Count 3.78 M/mcL (4.19-5.50); Red Cell Distribution Width 15.1 % (11.5-14.5); Segmented Neutrophils % 66.2 %; White Blood Count 4.7 K/mcL (4.3-11.1)
[2019-09-25 04:05] LABS: Platelet Count 37 K/mcL (140-400)
[2019-09-25] MEDS: Insulin LISPRO 300 UNITS/3 ML VIAL SQ SCH ×4 (10:53→21:06)
[2019-09-25] MEDS: Metoprolol XL (24 HR) Succ 25 MG TAB.ER.24H PO SCH (10:54)
[2019-09-25] MEDS: Aspirin 81 MG TAB.CHEW PO SCH (10:55)
[2019-09-25] MEDS ORDERED: Furosemide 40 MG/4 ML VIAL IVP ONE (14:58)
[2019-09-26 06:29] LABS: Basophils % 0.5 %; Lymphocytes % 30.3 %
[2019-09-26 06:31] LABS: Eosinophils # 0.2 K/mcL (0.0-0.6); Eosinophils % 5.3 %; Hematocrit 32.8 % (37.5-50.1); Hemoglobin 10.5 g/dL (12.9-16.9); Immature Granulocytes % 0.5 % (0-4); Immature Platelets 13.7 % (1.1-6.1); Lymphocytes # 1.2 K/mcL (0.6-4.6); Mean Corpuscular Hemoglobin 27.1 pg (28.0-33.3); Mean Corpuscular Volume 84.8 fL (83.0-100.0); Monocytes # 0.4 K/mcL (0.0-1.3); Monocytes % 10.1 %; Neutrophils # 2.1 K/mcL (1.6-8.9); Red Blood Count 3.87 M/mcL (4.19-5.50); Red Cell Distribution Width 15.3 % (11.5-14.5); Segmented Neutrophils % 53.3 %
[2019-09-26 06:33] LABS: Platelet Count 34 K/mcL (140-400)
[2019-09-26 06:51] LABS: BUN/Creatinine Ratio 21 (6-26); Blood Urea Nitrogen 25 mg/dL (8-23); Calcium 8.8 mg/dL (8.6-10.3); Carbon Dioxide 29 mEq/L (23-29); Chloride 99 mEq/L (98-107); Glucose 220 mg/dL (70-105); Osmolality,Calculated 299 (280-300); Potassium 3.4 mEq/L (3.5-5.1); Sodium 139 mEq/L (136-145); eGFR For African Americans > 60 (> 60); eGFR For Non-African Americans 57 (> 60)
[2019-09-26] MEDS: Metoprolol XL (24 HR) Succ 25 MG TAB.ER.24H PO SCH (08:54)
[2019-09-26] MEDS: Insulin LISPRO 300 UNITS/3 ML VIAL SQ SCH (08:54)
[2019-09-26] MEDS: Aspirin 81 MG TAB.CHEW PO SCH (08:54)
[2019-09-26 11:43] VITALS: BP 102/65
== END 2019-09-26 14:00 | disposition hospice, home (50) ==
LOC: EMEROOARM 13:20 → 3BNU 13:20 → SUATTDRO 17:48 → 3BNU 18:24
PROVIDERS: ADMIT Family Medicine; ATTEND Internal Medicine

== ENCOUNTER 2021-01-22 22:21 | Observation (INO) ==
[2021-01-22 23:10] LABS: Hematocrit 35.7 % (37.5-50.1)
[2021-01-22 23:12] LABS: Hemoglobin 12.1 g/dL (12.9-16.9); Immature Platelets 10.6 % (1.1-6.1); Mean Corpuscular HGB Conc 33.9 g/dL (31.6-35.5); Mean Corpuscular Hemoglobin 31.9 pg (28.0-33.3); Mean Corpuscular Volume 94.2 fL (83.0-100.0); Mean Platelet Volume 12.4 fL (9.4-12.4); Red Blood Count 3.79 M/mcL (4.19-5.50); Red Cell Distribution Width 15.8 % (11.5-14.5); White Blood Count 7.2 K/mcL (4.3-11.1)
[2021-01-22 23:14] LABS: Platelet Count 54 K/mcL (140-400)
[2021-01-22 23:25] LABS: Alanine Aminotransferase 12 Units/L (7-52); Alkaline Phosphatase 95 Units/L (34-104); Aspartate Amino Transferase 24 Units/L (13-39); BUN/Creatinine Ratio 19 (6-26); Bilirubin,Direct 0.5 mg/dL (0.0-0.2); Bilirubin,Total 2.5 mg/dL (0.3-1.0); Blood Urea Nitrogen 15 mg/dL (8-23); Calcium 8.3 mg/dL (8.6-10.3); Carbon Dioxide 23 mEq/L (23-29); Chloride 105 mEq/L (98-107); Glucose 138 mg/dL (70-105); Lipase 5 Units/L (11-82); Osmolality,Calculated 287 (280-300); Potassium 3.3 mEq/L (3.5-5.1); Sodium 137 mEq/L (136-145); eGFR For African Americans > 60 (> 60); eGFR For Non-African Americans > 60 (> 60)
[2021-01-22 23:30] LABS: Lymphocytes # 1.3 K/mcL (0.6-4.6); Monocytes # 0.3 K/mcL (0.0-1.3); Neutrophils # 5.6 K/mcL (1.6-8.9)
[2021-01-23 02:16] LABS: Bacteria,Urine Few per hpf (None-Few); Bilirubin,Urine Negative (Negative); Blood,Urine Moderate (Negative); Clarity,Urine Clear (Clear); Color,Urine Yellow (Yellow); Glucose,Urine (UA) Normal (Normal); Ketones,Urine Negative (Negative); Leukocyte Esterase,Urine Large (Negative); Nitrite,Urine Positive (Negative); Protein,Urine 50 mg/dL (Neg-Trace); RBC,Urine 0-3 per hpf (0-3); Specific Gravity,Urine 1.022 (1.010-1.025); Squamous Epithelial Cell,Urine Few per hpf (None-Few); Urobilinogen,Urine Normal (Normal); WBC,Urine TNTC per hpf (0-3)
[2021-01-23] MEDS ORDERED: cefTRIAXone 1,000 MG in 0.9 % Sodium Chloride Mini Bag 100 ML IVPB ONE (02:34)
[2021-01-23] MEDS ORDERED: Acetaminophen 325 MG TABLET PO PRN (03:31)
[2021-01-23] MEDS ORDERED: Ondansetron 4 MG/2 ML VIAL IVP PRN (03:31)
[2021-01-23] MEDS ORDERED: Naloxone 0.4 MG/ML INJ IVP PRN (03:31)
[2021-01-23] MEDS ORDERED: *HR* Dextrose 50 % in Water (Vial) 50 ML VIAL IVP PRN (04:19)
[2021-01-23] MEDS ORDERED: D5% in Water 1,000 ML IVC PRN (04:19)
[2021-01-23] MEDS ORDERED: Dextrose Gel 15 GM/37.5 ML TUBE PO PRN ×2 (04:19)
[2021-01-23] MEDS ORDERED: Milk and Molasses Enema 200 ML RC ONE (04:26)
[2021-01-23 05:27] LABS: Red Blood Count 3.94 M/mcL (4.19-5.50); Red Cell Distribution Width 15.6 % (11.5-14.5)
[2021-01-23 05:29] LABS: Basophils % 0.1 %; Eosinophils # 0.1 K/mcL (0.0-0.6); Eosinophils % 1.6 %; Hematocrit 36.7 % (37.5-50.1); Hemoglobin 12.7 g/dL (12.9-16.9); Immature Granulocytes % 0.1 % (0-4); Lymphocytes # 1.5 K/mcL (0.6-4.6); Lymphocytes % 19.3 %; Mean Corpuscular HGB Conc 34.6 g/dL (31.6-35.5); Mean Corpuscular Hemoglobin 32.2 pg (28.0-33.3); Mean Corpuscular Volume 93.1 fL (83.0-100.0); Mean Platelet Volume 12.6 fL (9.4-12.4); Monocytes # 0.6 K/mcL (0.0-1.3); Monocytes % 7.5 %; Neutrophils # 5.4 K/mcL (1.6-8.9); Segmented Neutrophils % 71.4 %; White Blood Count 7.6 K/mcL (4.3-11.1)
[2021-01-23 05:35] LABS: Platelet Count 56 K/mcL (140-400)
[2021-01-23 05:47] LABS: BUN/Creatinine Ratio 19 (6-26); Blood Urea Nitrogen 15 mg/dL (8-23); Calcium 8.9 mg/dL (8.6-10.3); Carbon Dioxide 28 mEq/L (23-29); Chloride 104 mEq/L (98-107); Glucose 132 mg/dL (70-105); Magnesium 1.6 mg/dL (1.6-2.6); Osmolality,Calculated 291 (280-300); Potassium 3.2 mEq/L (3.5-5.1); Sodium 139 mEq/L (136-145); eGFR For African Americans > 60 (> 60); eGFR For Non-African Americans > 60 (> 60)
[2021-01-23 05:51] LABS: Platelet Estimate Decreased (Normal)
[2021-01-23] MEDS: 0.9 % Sodium Chloride 1,000 ML IVC SCH ×2 (05:53→13:22)
[2021-01-23] MEDS ORDERED: *HR* Enoxaparin 30 MG/0.3 ML SYRINGE SQ SCH (09:00)
[2021-01-23] MEDS: Insulin LISPRO 300 UNITS/3 ML VIAL SUBQ SCH ×4 (09:09→20:36)
[2021-01-23] MEDS ORDERED: polyethylene glycoL 3350 17 GM POWD.PACK PO PRN (10:43)
[2021-01-23] MEDS ORDERED: Ipratropium/Albuterol Neb 3 ML IH PRN (15:01)
[2021-01-23] MEDS ORDERED: Bisacodyl 10 MG RECTAL SUPPOSITORY RC ONE (15:52)
[2021-01-23] MEDS: cefTRIAXone 1,000 MG in 0.9 % Sodium Chloride Mini Bag 100 ML IVPB SCH (17:46)
[2021-01-23] MEDS: Cyanocobalamin (B-12) 1,000 MCG TABLET PO SCH (20:38)
[2021-01-24 02:16] LABS: Basophils % 0.2 %; Red Cell Distribution Width 15.9 % (11.5-14.5)
[2021-01-24 02:18] LABS: Eosinophils # 0.2 K/mcL (0.0-0.6); Hematocrit 34.5 % (37.5-50.1); Hemoglobin 11.9 g/dL (12.9-16.9); Immature Granulocytes % 0.2 % (0-4); Immature Platelets 11.5 % (1.1-6.1); Lymphocytes # 1.3 K/mcL (0.6-4.6); Lymphocytes % 24.4 %; Mean Corpuscular HGB Conc 34.5 g/dL (31.6-35.5); Mean Corpuscular Hemoglobin 32.7 pg (28.0-33.3); Mean Corpuscular Volume 94.8 fL (83.0-100.0); Mean Platelet Volume 12.4 fL (9.4-12.4); Monocytes # 0.4 K/mcL (0.0-1.3); Red Blood Count 3.64 M/mcL (4.19-5.50); Segmented Neutrophils % 65.2 %; White Blood Count 5.3 K/mcL (4.3-11.1)
[2021-01-24 02:19] LABS: Neutrophils # 3.5 K/mcL (1.6-8.9); Platelet Count 51 K/mcL (140-400)
[2021-01-24 02:34] LABS: Alanine Aminotransferase 9 Units/L (7-52); Alkaline Phosphatase 96 Units/L (34-104); Aspartate Amino Transferase 20 Units/L (13-39); BUN/Creatinine Ratio 18 (6-26); Bilirubin,Direct 0.5 mg/dL (0.0-0.2); Bilirubin,Indirect 1.6 mg/dL (0.0-1.0); Bilirubin,Total 2.1 mg/dL (0.3-1.0); Blood Urea Nitrogen 12 mg/dL (8-23); Calcium 8.5 mg/dL (8.6-10.3); Carbon Dioxide 25 mEq/L (23-29); Chloride 105 mEq/L (98-107); Glucose 111 mg/dL (70-105); Osmolality,Calculated 286 (280-300); Potassium 3.3 mEq/L (3.5-5.1); Sodium 138 mEq/L (136-145); eGFR For African Americans > 60 (> 60); eGFR For Non-African Americans > 60 (> 60)
[2021-01-24] MEDS: Insulin LISPRO 300 UNITS/3 ML VIAL SUBQ SCH ×4 (08:09→19:40)
[2021-01-24] MEDS: Aspirin 81 MG TAB.CHEW PO SCH (08:22)
[2021-01-24] MEDS: Metoprolol XL (24 HR) Succ 25 MG TAB.ER.24H PO SCH (08:23)
[2021-01-24] MEDS: cefTRIAXone 1,000 MG in 0.9 % Sodium Chloride Mini Bag 100 ML IVPB SCH (18:02)
[2021-01-24] MEDS: Cyanocobalamin (B-12) 1,000 MCG TABLET PO SCH (19:34)
[2021-01-25] MEDS: Insulin LISPRO 300 UNITS/3 ML VIAL SUBQ SCH ×4 (08:27→21:49)
[2021-01-25] MEDS: Aspirin 81 MG TAB.CHEW PO SCH (08:31)
[2021-01-25] MEDS: Metoprolol XL (24 HR) Succ 25 MG TAB.ER.24H PO SCH (08:31)
[2021-01-25 09:05] LABS: Mean Corpuscular Volume 95.1 fL (83.0-100.0)
[2021-01-25 09:08] LABS: Eosinophils # 0.2 K/mcL (0.0-0.6); Hematocrit 34.6 % (37.5-50.1); Hemoglobin 11.5 g/dL (12.9-16.9); Mean Corpuscular HGB Conc 33.2 g/dL (31.6-35.5); Mean Corpuscular Hemoglobin 31.6 pg (28.0-33.3); Mean Platelet Volume 12.4 fL (9.4-12.4); Red Blood Count 3.64 M/mcL (4.19-5.50); Red Cell Distribution Width 15.5 % (11.5-14.5); White Blood Count 4.6 K/mcL (4.3-11.1)
[2021-01-25 09:27] LABS: BUN/Creatinine Ratio 19 (6-26); Blood Urea Nitrogen 12 mg/dL (8-23); Calcium 8.4 mg/dL (8.6-10.3); Carbon Dioxide 26 mEq/L (23-29); Chloride 105 mEq/L (98-107); Glucose 108 mg/dL (70-105); Osmolality,Calculated 286 (280-300); Potassium 3.5 mEq/L (3.5-5.1); Sodium 138 mEq/L (136-145); eGFR For African Americans > 60 (> 60); eGFR For Non-African Americans > 60 (> 60)
[2021-01-25 09:39] LABS: Platelet Count 48 K/mcL (140-400)
[2021-01-25 09:42] LABS: Lymphocytes # 0.9 K/mcL (0.6-4.6); Monocytes # 0.3 K/mcL (0.0-1.3); Neutrophils # 3.2 K/mcL (1.6-8.9)
[2021-01-25 09:43] LABS: Platelet Estimate Decreased (Normal)
[2021-01-25 09:44] LABS: Reactive Lymphocytes Present (Not Present)
[2021-01-25 10:56] LABS: Thyroid Stimulating Hormone 0.189 mcIU/mL (0.340-5.600)
[2021-01-25] MEDS: Doxycycline 100 MG CAPSULE PO SCH ×2 (11:24→19:53)
[2021-01-25] MEDS: Furosemide 20 MG TABLET PO SCH (11:24)
[2021-01-25] MEDS: Cyanocobalamin (B-12) 1,000 MCG TABLET PO SCH (19:54)
[2021-01-26 06:24] VITALS: BP 112/75
[2021-01-26] MEDS: Insulin LISPRO 300 UNITS/3 ML VIAL SUBQ SCH ×2 (07:37→11:44)
[2021-01-26] MEDS: Doxycycline 100 MG CAPSULE PO SCH (08:09)
[2021-01-26] MEDS: Aspirin 81 MG TAB.CHEW PO SCH (08:09)
[2021-01-26] MEDS: Furosemide 20 MG TABLET PO SCH (08:09)
[2021-01-26] MEDS: Metoprolol XL (24 HR) Succ 25 MG TAB.ER.24H PO SCH (08:09)
== END 2021-01-26 16:26 | disposition home health service (06) ==
LOC: 3BNU 22:21 → EMEROOARM 22:21 → SUATTDRO 01-23 03:47 → 3BNU 01-23 04:45
PROVIDERS: ADMIT Internal Medicine; ATTEND Internal Medicine